=== PATIENT | female | born 1935 | race Caucasian/White ===

== ENCOUNTER → 2017-10-24 10:28 | Outpatient (CLI) | payer MEDICARE, SELFPAY ==
[2017-10-24 11:31] LABS: Absolute Lymphocyte Count 1.89 X10^3/ul (0.83-4.51); Absolute Neutrophil Count 5.5 X10^3/uL (2.0-7.7); Basophil# 0.02 X10^3/uL; Basophil% 0.2 % (0-1); Eosinophil# 0.09 X10^3/uL; Eosinophils% 1.1 % (0-5); Hematocrit 39.6 % (37-47); Hemoglobin 12.8 g/dl (12.0-15.0); Lymphocyte # 1.89 X10^3/ul (4.0); Lymphocyte % 23.3 % (19-41); Mean Corp Hgb Conc 32.3 g/gl (32-36); Mean Platelet Vol. 10.6 fl (6.2-12.0); Monocyte# 0.56 X10^3/uL; Monocyte% 6.9 % (0-10); Neutrophil % 67.9 % (47-70); Platelet Count 273 K/mm3 (150-450); RBC Distribution Width CV 13.4 % (11.6-14.6); Red Blood Count 4.26 M/mm3 (4.2-5.4); White Blood Count 8.1 K/mm3 (4.4-11.0)
[2017-10-24 11:32] LABS: POSITIVE COUNT NO; POSITIVE DIFFERENTIAL NO; POSITIVE MORPHOLOGY NO
[2017-10-24 11:44] LABS: Vitamin D,25 Hydroxy 21.5 ng/mL (29.95-100.01)
[2017-10-24 11:46] LABS: ALB/GLOB Ratio 0.8 RATIO (0.9-2.4); AST(SGOT) 13 U/L (15-37); Alanine Aminotransfer ALT/SGPT 24 U/L (13-56); Albumin, Serum 3.5 g/dL (3.2-5.0); Alkaline Phosphatase 96 U/L (45-117); Anion Gap 9 (5-15); BUN 28 mg/dL (7-18); BUN/Creat Ratio 25.9 RATIO (10-20); Calcium,Total 8.7 mg/dL (8.5-10.1); Chloride 106 mmol/L (98-107); Cholesterol 236 mg/dL (200); Creatinine, Serum 1.08 mg/dL (0.55-1.02); EST Glomerular Filtration Rate 51 mL/min (>60); Est Glom Filt Rate - Afr Amer 62 mL/min (>60); Globulin 4.3 g/dL (2.2-4.2); Glucose 107 mg/dL (74-106); High Density Lipoprotein 35 mg/dL; Potassium 4.3 mmol/L (3.5-5.1); Protein, Total 7.8 g/dL (6.4-8.2); Sodium Level 141 mmol/L (136-145); Thyroid Stim Hormone (TSH) 5.83 uIU/mL (0.358-3.74); Triglycerides 175 mg/dL; Very Low Density Lipoprotein 35 mg/dL (5-40)
== END ==
PROVIDERS: Visit Provider Family Medicine Geriatric Medicine
DX: E55.9 Vitamin D deficiency, unspecified (principal); E78.4 Other hyperlipidemia; I10 Essential (primary) hypertension
CPT/HCPCS: 36415; 80053; 80061; 82306; 84443; 85025

== ENCOUNTER → 2017-11-19 09:10 | Outpatient (CLI) | payer MEDICARE, SELFPAY ==
--- NOTE | 2017-11-19 09:13 | BI_ITS ---
MAMMOGRAPHY - BILATERAL SCREENING 3-D NATE SYNTHESIS REASON FOR EXAM: Female, 82 years old. Bilateral Screening 3-D tomosynthesis PERTINENT HISTORY: Sister with breast cancer.. TECHNIQUE: 2-D mammograms and 3-D Nate synthesis of the breast (s) were performed. CAD was performed. COMPARISON: None. FINDINGS: The breast composition is composed of scattered fibroglandular density. Scattered benign calcifications are seen. No dense spiculated masses or suspicious microcalcifications are identified. No architectural distortion is identified. There is no skin thickening or retraction. Stable vascular, and punctate calcifications. There has been no significant change since the prior study. BI/SCREENING MAMM (CAD), BILAT IMPRESSION: No mammographic signs of malignancy. Routine yearly mammograms recommended. ASSESSMENT CATEGORY: BIRADS Category 2: Benign. A letter regarding these results will be sent to the patient by the facility within 30 days. FOLLOW UP RECOMMENDATION: Yearly follow up mammogram recommended. (A) Approximately 10% of breast cancers are not detected by mammography. A normal mammogram should not delay biopsy of a clinically suspicious abnormality. Electronically Signed: Cornell Bernardo MD at 11:39 EDT , Service support ,
== END ==
PROVIDERS: Family Provider Family Medicine Geriatric Medicine; PCP Family Medicine Geriatric Medicine; Visit Provider Family Medicine Geriatric Medicine
DX: Z12.31 Encounter for screening mammogram for malignant neoplasm of breast (principal)
CPT/HCPCS: 77063; 77067

== ENCOUNTER → 2017-12-27 10:12 | Outpatient (CLI) | payer MEDICARE, SELFPAY ==
--- NOTE | 2017-12-27 10:12 | DT_ITS ---
This patient was seen during an EMR downtime December 24, 2017 - December 31, 2017. This patient may have a combination of paper and electronic documentation or all paper documentation. All documentation is viewable within the e-chart portion of [facility] for each patient visit.
--- NOTE | 2017-12-27 10:15 | RAD_ITS ---
STUDY: X-RAY - LEFT KNEE REASON FOR EXAM: Female, 82 years old. Left knee pain TECHNIQUE: 4 view(s) of the knee. COMPARISON: None. FINDINGS: Normal visualized distal femur. Normal visualized proximal tibia and fibula. Normal proximal tibiofibular articulation. Normal medial femorotibial compartment. Normal lateral femorotibial compartment. Normal patellofemoral articulation. The soft tissue structures are unremarkable. RAD/Knee 4 or More Views IMPRESSION: Normal x-ray examination of the knee. Electronically Signed: Bin Pineda MD at 18:25 EDT , Service support ,
== END ==
PROVIDERS: Family Provider Family Medicine Geriatric Medicine; PCP Family Medicine Geriatric Medicine; Visit Provider Family Medicine Geriatric Medicine
DX: M25.562 Pain in left knee (principal)
CPT/HCPCS: 73564

== ENCOUNTER 2018-01-05 21:41 | Emergency (ER) | payer MEDICARE, SELFPAY ==
[2018-01-05 21:43] VITALS: BP 180/75; PULSE 89; RESP 18; TEMP 36.7; O2SAT 96; BMI 33.5
--- NOTE | 2018-01-05 22:45 | ED.VISSUMM ---
- ER Visit Summary Date of Service: 01/05/18 Chief Complaint: Atraumatic left medial knee pain History of Present Illness: The patient is a 82 F complaining of atraumatic left medial knee pain for last 2 weeks. Previously did not has knee problems. She has never had knee surgery. She has not had any significant history of arthritis. She states 2 weeks ago she stepped up in her jeep and was sitting sat somewhat cramped and developed knee pain. She was seen in follow-up by her primary care physician Dr. Napier about a week ago he did a left knee joint injection using steroids. She said it gave her a little relief for a day or so but then became uncomfortable again. She denies any recent falls or trauma. She has been using a cane to ambulate. She denies any redness or fever. She has never had any type of knee surgery. Physical Examination: Older female no acute distress vital signs stable afebrile. HEENT exam unremarkable neck nontender lungs clear to auscultation bilaterally. Heart regular rate and rhythm no murmur. Abdomen soft nontender. She is moving all 4 extremities. They are neurovascularly intact. The left hip, ankle and foot are nontender neurovascular intact with normal range of motion. Left knee has medial knee joint tenderness. There is no ecchymosis or bruising no signs of trauma. No redness or warmth. No significant effusion. She is able to flex and extend with some discomfort medially. The ACL and PCL appear to be intact. The LCL is intact. The MCL has some pain with stressing but appears to have a good endpoint does not appear to be torn. There is also medial joint tenderness. There is absolutely no signs of a joint infection. Test Results: She had x-rays done within the last 2 weeks. I reviewed and showed some joint space narrowing but the bones appeared to look good. There is some degree of arthritis. I went over the x-rays with the patient explained to her that she may have a meniscal tear or wear and tear of the cartilage that is not seen on the x-ray. Emergency Department Course and Treatment: Patient referred to Dr. Finn Arechiga communications project manager for orthopedics for follow-up. There is nothing further to do an ER tonight. She did not want pain meds she will use Aleve at home. Ice. Treatment Plan: Left medial knee pain suspect secondary to arthritis. Disposition: Discharged Impression: Left medial knee pain secondary to arthritis rule out intra-articular pathology This note was generated with [employer] dictation software. It may contain incorrect words, spelling, and punctuation that were not noted in review of the chart prior to signing ED Disposition - Plan for ED Patient: Chief Complaint: Lower Extremity Injury Referrals: Beck Napier Chi, MD [Primary Care Provider] -
--- NOTE | 2018-01-05 22:50 | ED.DCSUM_ITS ---
- ER Visit Summary Date of Service: 01/05/18 Chief Complaint: Atraumatic left medial knee pain History of Present Illness: The patient is a 82 F complaining of atraumatic left medial knee pain for last 2 weeks. Previously did not has knee problems. She has never had knee surgery. She has not had any significant history of arthritis. She states 2 weeks ago she stepped up in her jeep and was sitting sat somewhat cramped and developed knee pain. She was seen in follow-up by her primary care physician Dr. Napier about a week ago he did a left knee joint injection using steroids. She said it gave her a little relief for a day or so but then became uncomfortable again. She denies any recent falls or trauma. She has been using a cane to ambulate. She denies any redness or fever. She has never had any type of knee surgery. Physical Examination: Older female no acute distress vital signs stable afebrile. HEENT exam unremarkable neck nontender lungs clear to auscultation bilaterally. Heart regular rate and rhythm no murmur. Abdomen soft nontender. She is moving all 4 extremities. They are neurovascularly intact. The left hip, ankle and foot are nontender neurovascular intact with normal range of motion. Left knee has medial knee joint tenderness. There is no ecchymosis or bruising no signs of trauma. No redness or warmth. No significant effusion. She is able to flex and extend with some discomfort medially. The ACL and PCL appear to be intact. The LCL is intact. The MCL has some pain with stressing but appears to have a good endpoint does not appear to be torn. There is also medial joint tenderness. There is absolutely no signs of a joint infection. Test Results: She had x-rays done within the last 2 weeks. I reviewed and showed some joint space narrowing but the bones appeared to look good. There is some degree of arthritis. I went over the x-rays with the patient explained to her that she may have a meniscal tear or wear and tear of the cartilage that is not seen on the x-ray. Emergency Department Course and Treatment: Patient referred to Dr. Finn Arechiga internal consultant for orthopedics for follow-up. There is nothing further to do an ER tonight. She did not want pain meds she will use Aleve at home. Ice. Treatment Plan: Left medial knee pain suspect secondary to arthritis. Disposition: Discharged Impression: Left medial knee pain secondary to arthritis rule out intra- articular pathology This note was generated with [employer] dictation software. It may contain incorrect words, spelling, and punctuation that were not noted in review of the chart prior to signing ED Disposition - Plan for ED Patient: Chief Complaint: Lower Extremity Injury Referrals: Beck Napier Chi, MD [Primary Care Provider] -
--- NOTE | 2018-01-05 22:50 | ED.DEP ---
ED Disposition - Plan for ED Patient: Disposition: Home or Assisted Living Chief Complaint: Lower Extremity Injury Instructions: ED Knee Pain [facility] Referrals: Beck Napier Chi, MD [Primary Care Provider] - Additional Instructions: Ice to the left knee. Aleve for pain and inflammation. Call and follow-up with Dr. Finn Arechiga or any orthopedic surgeon of your choice.
[2018-01-05 23:06] VITALS: RESP 16
--- NOTE | 2018-01-05 23:07 | ED.RN ---
REVIEWED D/C INSTRUCTIONS, FOLLOW UP CARE, AND S/S THAT WOULD WARRANT A RETURN TO THE ED WITH PT. PT VERBALIZED AN UNDERSTANDING AND DENIES FURTHER QUESTIONS FOR THIS RN. PT SKIN P/W/D, RESP EVEN AND UNLABORED, PT A&O X 3, NO DISTRESS NOTED. PT ASSISTED OUT OF ED IN WHEELCHAIR, NO DISTRESS NOTED.
== END 2018-01-05 23:08 | disposition home or self-care (01) ==
PROVIDERS: Emergency Provider Emergency Medicine; Family Provider Family Medicine Geriatric Medicine; PCP Family Medicine Geriatric Medicine
DX: M25.562 Pain in left knee (principal); M17.12 Unilateral primary osteoarthritis, left knee; I10 Essential (primary) hypertension; Z90.49 Acquired absence of other specified parts of digestive tract; Z79.899 Other long term (current) drug therapy
CPT/HCPCS: 99284

== ENCOUNTER → 2018-01-09 16:53 | Outpatient (CLI) | payer MEDICARE, SELFPAY ==
--- NOTE | 2018-01-09 17:01 | MRI_ITS ---
STUDY: MRI LEFT KNEE REASON FOR EXAM: Female, 82 years old. Left knee pain. Twisting injury 2 weeks ago. TECHNIQUE: Standardized fat and water weighted pulse sequences were obtained in all 3 orthogonal planes. COMPARISON: X-ray December 27, 2017 FINDINGS: There is loss of substance with tearing at the junction of the posterior horn and body of the medial meniscus, series 3 images 33/42 and 34/42. There is diffuse, greater than 50% thickness articular cartilage loss of the medial femorotibial compartment. Normal medial femoral condyle and tibial plateau. There is a partial sprain of the MCL with interstitial and periligamentous edema, series 6 images 15/30 through 17/. Normal distal semimembranosus, gracilis and semitendinosus tendons. Normal lateral meniscus. There is diffuse, less than 50% thickness articular cartilage loss of the lateral femorotibial compartment. Normal lateral femoral condyle and tibial plateau. Normal proximal tibiofibular articulation. Normal lateral collateral (fibular) ligament. Normal popliteus tendon. Normal biceps femoris tendon. Normal anterior cruciate ligament (ACL). Normal posterior cruciate ligament (PCL). Normal congruent patellofemoral articulation. Normal hyaline cartilage of the patellofemoral compartment. Normal medial and lateral patellar retinaculum. Normal quadriceps tendon. Normal patellar tendon. Normal Hoffa's fat pad. There is a moderate volume joint effusion. The soft tissues are unremarkable. The otherwise visualized osseous structures are unremarkable. MRI/Lower Ext Joint Only (Routine) IMPRESSION: Medial meniscus tear Medial collateral ligament sprain. Joint effusion. Electronically Signed: Joaquim Coe MD at 18:55 EDT , Service support ,
== END ==
PROVIDERS: Family Provider Family Medicine Geriatric Medicine; PCP Family Medicine Geriatric Medicine; Visit Provider Family Medicine Geriatric Medicine
DX: S76.112A Strain of left quadriceps muscle, fascia and tendon, initial encounter (principal); M25.562 Pain in left knee
CPT/HCPCS: 73721

== ENCOUNTER → 2018-01-22 12:28 | Outpatient (CLI) | payer MEDICARE, SELFPAY ==
--- NOTE | 2018-01-22 12:31 | RAD_ITS ---
STUDY: X-RAY - LUMBOSACRAL SPINE REASON FOR EXAM: Female, 82 years old. Low back and left leg pain. TECHNIQUE: 8 view(s) of the lumbosacral spine were obtained, including lateral weightbearing flexion-extension views. COMPARISON: None FINDINGS: Normal lumbar lordosis. There is no substantial scoliosis. There is a grade 1 spondylolisthesis of L3 on L4 and borderline retrolisthesis of L4 on L5, neither of which change with flexion and extension. Range of motion on flexion and extension is limited, however. There is rightward subluxation of L3 on L4, and a 16 degree levoscoliosis at L4-5. There is multilevel endplate spondylosis of the lumbar vertebrae. There is multi-level degenerative disc disease with multi-level disc space narrowing. There is depression of the superior L3 and L5 vertebral endplates with 25-30% loss of height at each level. There are degenerative arthroses of the lumbar facet articulations, with narrowing most prominent on the right at L4-5 and on the left at L5-S1. There is mild degenerative arthrosis of the bilateral sacroiliac joints with articular joint space narrowing and sclerosis. Normal visualized sacrum. There is atherosclerotic calcification of the abdominal aorta without a demonstrated aneurysm. Surgical clips of prior cholecystectomy project in the right upper quadrant of the abdomen. RAD/L/S Spine Comp/w Bending Views IMPRESSION: 1. 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 2. Degenerative changes of the spine, as detailed above. Mild vertebral displacements of the mid to lower spine appear fixed on flexion and extension, although range of motion is very limited. 3. Atherosclerotic calcific plaquing of the abdominal aorta. Electronically Signed: Cornell Choudhary MD at 19:46 EDT , Service support ,
== END ==
PROVIDERS: Family Provider Family Medicine Geriatric Medicine; PCP Family Medicine Geriatric Medicine; Visit Provider Family Medicine Geriatric Medicine
DX: M54.5 Low back pain (principal)
CPT/HCPCS: 72114

== ENCOUNTER → 2018-01-30 11:45 | Outpatient (CLI) | payer MEDICARE, SELFPAY ==
[2018-01-30 12:46] LABS: Absolute Lymphocyte Count 0.97 X10^3/ul (0.83-4.51); Absolute Neutrophil Count 13.4 X10^3/uL (2.0-7.7); Basophil# 0.01 X10^3/uL; Basophil% 0.1 % (0-1); Eosinophil# 0.01 X10^3/uL; Eosinophils% 0.1 % (0-5); Hematocrit 40.5 % (37-47); Hemoglobin 13.2 g/dl (12.0-15.0); Lymphocyte # 0.97 X10^3/ul (4.0); Lymphocyte % 6.3 % (19-41); Mean Corp Hgb Conc 32.6 g/gl (32-36); Mean Corpuscular Hgb 30.5 pg (27.0-32.0); Mean Corpuscular Volume 93.5 fL (81-99); Mean Platelet Vol. 9.8 fl (6.2-12.0); Monocyte# 0.84 X10^3/uL; Monocyte% 5.5 % (0-10); Neutrophil # 13.42 X10^3/uL (2.7-7.7); Platelet Count 238 K/mm3 (150-450); RBC Distribution Width CV 14.2 % (11.6-14.6); RBC Distribution Width SD 48.5 fl (35.1-43.9); Red Blood Count 4.33 M/mm3 (4.2-5.4); White Blood Count 15.4 K/mm3 (4.4-11.0)
[2018-01-30 12:51] LABS: POSITIVE COUNT NO; POSITIVE DIFFERENTIAL NO; POSITIVE MORPHOLOGY NO
[2018-01-30 13:07] LABS: ALB/GLOB Ratio 0.9 RATIO (0.9-2.4); AST(SGOT) 17 U/L (15-37); Alanine Aminotransfer ALT/SGPT 35 U/L (13-56); Albumin, Serum 3.1 g/dL (3.2-5.0); Alkaline Phosphatase 121 U/L (45-117); Anion Gap 9 (5-15); BUN 41 mg/dL (7-18); BUN/Creat Ratio 37.3 RATIO (10-20); Calcium,Total 8.5 mg/dL (8.5-10.1); Chloride 102 mmol/L (98-107); Cholesterol 195 mg/dL (200); EST Glomerular Filtration Rate 50 mL/min (>60); Est Glom Filt Rate - Afr Amer 61 mL/min (>60); Globulin 3.5 g/dL (2.2-4.2); Glucose 98 mg/dL (74-106); High Density Lipoprotein 50 mg/dL; Protein, Total 6.6 g/dL (6.4-8.2); Sodium Level 137 mmol/L (136-145); Thyroid Stim Hormone (TSH) 2.77 uIU/mL (0.358-3.74); Triglycerides 160 mg/dL; Very Low Density Lipoprotein 32 mg/dL (5-40)
== END ==
PROVIDERS: Family Provider Family Medicine Geriatric Medicine; PCP Family Medicine Geriatric Medicine; Visit Provider Family Medicine Geriatric Medicine
DX: E55.9 Vitamin D deficiency, unspecified (principal); E78.4 Other hyperlipidemia; I10 Essential (primary) hypertension
CPT/HCPCS: 36415; 80053; 80061; 82306; 84443; 85025

== ENCOUNTER → 2018-02-22 11:15 | Outpatient (CLI) | payer MEDICARE, SELFPAY ==
--- NOTE | 2018-02-22 11:28 | EKG12_ITS ---
Test Reason : PRE OP Blood Pressure : / mmHG Vent. Rate : 090 BPM Atrial Rate : 090 BPM P-R Int : 136 ms QRS Dur : 122 ms QT Int : 356 ms P-R-T Axes : 052 012 026 degrees QTc Int : 435 ms Normal sinus rhythm Possible Left atrial enlargement Right bundle branch block Abnormal ECG Confirmed by AGATHA SALEH, GERI ([id number]), photography editor JENI JERONIMO ([id number] on 02/25/2018 1:40:10 PM Referred By: Lalo Hall Confirmed By:GERI SNIDER MD
[2018-02-22 12:44] LABS: Hematocrit 36.4 % (37-47); Hemoglobin 11.6 g/dl (12.0-15.0); Mean Corp Hgb Conc 31.9 g/gl (32-36); Mean Corpuscular Hgb 29.9 pg (27.0-32.0); Mean Corpuscular Volume 93.8 fL (81-99); Mean Platelet Vol. 9.5 fl (6.2-12.0); Platelet Count 268 K/mm3 (150-450); RBC Distribution Width CV 14.3 % (11.6-14.6); RBC Distribution Width SD 48.6 fl (35.1-43.9); Red Blood Count 3.88 M/mm3 (4.2-5.4); White Blood Count 9.2 K/mm3 (4.4-11.0)
[2018-02-22 12:53] LABS: Scan Indicated on CBC? Y/N NO
[2018-02-22 13:36] LABS: Anion Gap 9 (5-15); BUN 24 mg/dL (7-18); BUN/Creat Ratio 24.6 RATIO (10-20); Chloride 105 mmol/L (98-107); Creatinine, Serum 0.97 mg/dL (0.55-1.02); EST Glomerular Filtration Rate 58 mL/min (>60); Est Glom Filt Rate - Afr Amer 70 mL/min (>60); Glucose 72 mg/dL (74-106); Potassium 4.7 mmol/L (3.5-5.1); Sodium Level 140 mmol/L (136-145)
== END ==
PROVIDERS: Family Provider Family Medicine Geriatric Medicine; PCP Family Medicine Geriatric Medicine; Visit Provider Physician Assistant Surgical
DX: Z01.818 Encounter for other preprocedural examination (principal); Z01.810 Encounter for preprocedural cardiovascular examination
CPT/HCPCS: 36415; 80048; 85027; 93005

== ENCOUNTER → 2018-04-24 13:12 | Outpatient (CLI) | payer MEDICARE, SELFPAY ==
[2018-04-24 17:26] LABS: Vitamin D,25 Hydroxy 30.3 ng/mL (29.95-100.01)
[2018-04-24 17:36] LABS: Absolute Lymphocyte Count 1.83 X10^3/ul (0.83-4.51); Absolute Neutrophil Count 6.7 X10^3/uL (2.0-7.7); Basophil# 0.02 X10^3/uL; Basophil% 0.2 % (0-1); Eosinophil# 0.08 X10^3/uL; Eosinophils% 0.8 % (0-5); Hematocrit 36.3 % (37-47); Hemoglobin 11.6 g/dl (12.0-15.0); Lymphocyte # 1.83 X10^3/ul (4.0); Lymphocyte % 19.3 % (19-41); Mean Corpuscular Hgb 31.2 pg (27.0-32.0); Mean Corpuscular Volume 97.6 fL (81-99); Mean Platelet Vol. 9.9 fl (6.2-12.0); Monocyte# 0.85 X10^3/uL; Neutrophil # 6.67 X10^3/uL (2.7-7.7); Neutrophil % 70.3 % (47-70); Platelet Count 261 K/mm3 (150-450); RBC Distribution Width CV 14.2 % (11.6-14.6); RBC Distribution Width SD 50.8 fl (35.1-43.9); Red Blood Count 3.72 M/mm3 (4.2-5.4); White Blood Count 9.5 K/mm3 (4.4-11.0)
[2018-04-24 17:37] LABS: Differential Indicated SCAN CRITERIA MET; POSITIVE COUNT NO; POSITIVE DIFFERENTIAL NO; POSITIVE MORPHOLOGY YES
[2018-04-24 17:39] LABS: ALB/GLOB Ratio 0.9 RATIO (0.9-2.4); AST(SGOT) 12 U/L (15-37); Alanine Aminotransfer ALT/SGPT 22 U/L (13-56); Albumin, Serum 3.2 g/dL (3.2-5.0); Alkaline Phosphatase 79 U/L (45-117); Anion Gap 8 (5-15); BUN 21 mg/dL (7-18); BUN/Creat Ratio 24.6 RATIO (10-20); Calcium,Total 8.6 mg/dL (8.5-10.1); Chloride 104 mmol/L (98-107); Cholesterol 218 mg/dL (200); Creatinine, Serum 0.85 mg/dL (0.55-1.02); EST Glomerular Filtration Rate 67 mL/min (>60); Est Glom Filt Rate - Afr Amer 82 mL/min (>60); Globulin 3.6 g/dL (2.2-4.2); Glucose 85 mg/dL (74-106); High Density Lipoprotein 44 mg/dL; Potassium 4.4 mmol/L (3.5-5.1); Protein, Total 6.8 g/dL (6.4-8.2); Sodium Level 138 mmol/L (136-145); Thyroid Stim Hormone (TSH) 2.91 uIU/mL (0.358-3.74); Triglycerides 115 mg/dL; Very Low Density Lipoprotein 23 mg/dL (5-40)
[2018-04-24 18:23] LABS: Differential Comment SCANNED
== END ==
PROVIDERS: Family Provider Family Medicine Geriatric Medicine; PCP Family Medicine Geriatric Medicine; Visit Provider Family Medicine Geriatric Medicine
DX: E55.9 Vitamin D deficiency, unspecified (principal); E78.49 Other hyperlipidemia; I10 Essential (primary) hypertension
CPT/HCPCS: 36415; 80053; 80061; 82306; 84443; 85025

== ENCOUNTER → 2018-06-26 10:38 | Outpatient (CLI) | payer MEDICARE, SELFPAY ==
--- NOTE | 2018-06-26 10:42 | BD_ITS ---
STUDY: DUAL ENERGY X-RAY ABSORPTIOMETRY / DXA REASON FOR EXAM: Female, 83 years old. The patient is postmenopausal. Loss of height. TECHNIQUE: Bone Mineral Density (BMD) measurements of lumbar spine and bilateral hips were obtained. COMPARISON: None. FINDINGS: Lumbar Spine (L1-L4): g/cm2 (1.032) / T-score (-1.1) / Z-score (0.8) Findings are suggestive of osteopenia with a low fracture risk. Left Femur Total: g/cm2 (0.785) / T-score (-1.8) / Z-score (0.5) Left Femoral Neck: g/cm2 (0.743) / T-score (-2.1) / Z-score (0.2) Right Femur Total: g/cm2 (0.808) / T-score (-1.6) / Z-score (0.6) Right Femoral Neck: g/cm2 (0.809) / T-score (-1.7) / Z-score (0.7) BD/Dexa Bone Density Study IMPRESSION: The patient is considered osteopenic as outlined below according to World Major Organization (WHO) criteria with a moderate fracture risk. Reference Information: The T-score is the number of standard deviations above or below the standard which is normal for young adults at their peak bone mineral density. The World Health Organization (WHO) interprets the T-scores as follows: Above -1 Normal bone density Between -1 and -2.5 Osteopenia Equal to / or below -2.5 Osteoporosis As a practical clinical guideline, osteopenia may be graded as follows: Mild -1 through -1.5 Moderate -1.6 through -2.0 Severe -2.1 through -2.4 The Z-score is the number of standard deviations above or below age-matched controls. A Z-score of less than -1.5 would be considered abnormal. References: 1. NIH Osteoporosis and Related Bone Diseases http://www.osteo.org 2. International Society for Clinical Densitometry http://www.iscd.org 3. National Osteoporosis Foundation http://www.nof.org Electronically Signed: Edmundo Diallo MD at 15:52 EST Tel [phone], Service support ,
== END ==
PROVIDERS: Family Provider Family Medicine Geriatric Medicine; PCP Family Medicine Geriatric Medicine; Visit Provider Family Medicine Geriatric Medicine
DX: Z78.0 Asymptomatic menopausal state (principal)
CPT/HCPCS: 77080

== ENCOUNTER → 2018-08-07 12:58 | Outpatient (CLI) | payer MEDICARE, SELFPAY ==
[2018-08-07 13:45] LABS: Amphetamine Urine VISTA NEGATIVE (<1000 ng/mL); Barbiturate Urine VISTA NEGATIVE (< 200 ng/mL); Benzodiazepine Urine VISTA NEGATIVE (< 200 ng/mL); Cocaine Urine VISTA NEGATIVE (< 300 ng/mL); Ecstacy Urine VISTA NEGATIVE (< 500 ng/mL); Methadone Urine VISTA NEGATIVE (< 300 ng/mL); PCP Urine VISTA NEGATIVE (< 25 ng/mL); THC Urine VISTA NEGATIVE (< 50 ng/mL); Vista UDS pH Range 5
--- OUTSIDE RECORDS SUMMARY | 2018-10-12 09:33 | XMS RPT_ITS ---
:1935 Author Organization OHIP Support Name Relationship Address Phone KEVIN LANDRY Unavailable [address] + [place] [address] R Unavailable Unavailable Unavailable KRAMMER, KEVIN Unavailable [address] + [place] [address] R Unavailable Unavailable Unavailable ROSALINDAMMER, KEVIN Unavailable [address] + [place] [address] R Unavailable Unavailable Unavailable KRAMMER, KEVIN Unavailable [address] + [place] [address] R Unavailable Unavailable Unavailable ROSALINDAMMER, KEVIN Unavailable [address] + [place] [address] R Unavailable Unavailable Unavailable ROSALINDAMMER, KEVIN Unavailable [address] + [place] [address] R Unavailable Unavailable Unavailable ROSALINDAMMER, KEVIN Unavailable [address] + [place] [address] R Unavailable Unavailable Unavailable KRAMMER, KEVIN Unavailable [address] + [place] [address] R Unavailable Unavailable Unavailable ROSALINDAMMER, KEVIN Unavailable [address] + [place] [address] R Unavailable Unavailable Unavailable KRAMMER, ANA Unavailable [address] + [place] [address] R Unavailable Unavailable Unavailable ROSALINDAMMER, KEVIN Unavailable [address] + [place] [address] R Unavailable Unavailable Unavailable KRAMMER, ANA Unavailable [address] + [place] [address] R Unavailable Unavailable Unavailable R Unavailable Unavailable Unavailable Care Team Providers Name Role Phone Basali, Ayman Attending Unavailable Basali, Ayman Referring Unavailable Karthikeyan, Beck Chi Primary Care Unavailable Karthikeyan, Beck Chi Attending Unavailable Karthikeyan, Beck Chi Attending Unavailable Karthikeyan, Beck Chi Referring Unavailable Karthikeyan, Beck Chi Primary Care Unavailable Karthikeyan, Beck Chi Attending Unavailable Karthikeyan, Beck Chi Primary Care Unavailable Karthikeyan, Beck Chi Primary Care Unavailable [place] Gomez Attending Unavailable Karthikeyan, Beck Chi Attending Unavailable Karthikeyan, Beck Chi Referring Unavailable Karthikeyan, Beck Chi Primary Care Unavailable Karthikeyan, Beck Chi Attending Unavailable Karthikeyan, Beck Chi Referring Unavailable Karthikeyan, Beck Chi Primary Care Unavailable Margaux Hernandez D.C. Attending Unavailable Karthikeyan, Beck Chi Referring Unavailable Karthikeyan, Beck Chi Attending Unavailable Karthikeyan, Beck Chi Primary Care Unavailable Lalo Hall PA-C Attending Unavailable EshenLalo wang PA-C Referring Unavailable Karthikeyan, Bekc Chi Primary Care Unavailable Finn Arechiga Unavailable Moodarjun, Sathya Attending Unavailable EshenauLalo fitzgerald PA-C Referring Unavailable Karthikeyan, Beck Chi Attending Unavailable Karthikeyan, Beck Chi Primary Care Unavailable Karthikeyan, Beck Chi Attending Unavailable Karthikeyan, Beck Chi Primary Care Unavailable PROBLEMS PROBLEMS DATE TYPE CONDITION / CODE ATTENDING STATUS SOURCE 08/07/2018 Unknown 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, 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, Community uncomplicated / Hospital F11.20(ICD-10) Repository 06/26/2018 Unknown N95.9 - Unspecified Karthikeyan, Beck Chi Active [facility] menopausal and Community perimenopausal Hospital disorder / Repository N95.9(ICD-10) 04/24/2018 Unknown E55.9 - Vitamin D Karthikeyan, Beck Chi Active [place] deficiency, Community unspecified / Hospital E55.9(ICD-10) Repository 04/24/2018 Unknown I10 - Essential Karthikeyan, Beck Chi Active [facility] (primary) hypertension Community / I10(ICD-10) Hospital Repository 04/08/2018 Unknown I45.10 - Unspecified [place], Active [place] right bundle-branch Sathya [facility] block / I45.10(ICD-10) Hospital Repository 04/08/2018 Unknown R94.31 - Abnormal [place], Active [place] electrocardiogram [facility] [ECG] [EKG] / Hospital R94.31(ICD-10) Repository 01/22/2018 Unknown M54.5 - Low back pain Karthikeyan, Beck Chi Active [place] / M54.5(ICD-10) [facility] Repository 01/16/2018 Unknown M25.562 - Pain in left Karthikeyan, Beck Chi Active [place] knee / M25.562(ICD-10) [facility] Repository PROCEDURES PROCEDURES No Procedure Records FoundRESULTS RESULTS URINE DRUG SCREEN Collected: 08/07/2018 Status: F Source: [place] ([place]) 1:04 PM [facility] [place] Order Comment: List of Drugs Taken or Suspected? UNK TYPE CODE TESTS RESULT OUT OF RANGE REFERENCE UNITS LAB L505.0075 TO BE Normal CONFIRMED Result Comment: CONFIRMATORY TESTING FOR ALL POSITIVE URINE DRUG SCREEN RESULTS WILL ONLY BE SENT OUT UPON PHYSICIAN ORDER. VISTA Urine Drug Screen methods provide only preliminary analytical test results. A more specific alternate chemical method must be used in order to obtain a confirmed analytical result. Gas chromatography/mass spectrometery (GC/MS) is the preferred confirmatory method. Clinical consideration and professional judgement should be applied to any drug of abuse test result, particularly when preliminary positive results are used. URINE TCA TESTING MUST BE ORDERED SEPARATELY. USE TEST MNEMONIC: [facility] LAB L505.5005 VISTA UDS PH 5 Normal LAB L505.5015 <1000 ng/mL AMPHETAMINES Normal NEGATIVE LAB L505.5025 < 200 ng/mL BARBITIURATES Normal NEGATIVE LAB L505.5035 < 200 ng/mL BENZODIAZIPINE Normal NEGATIVE LAB L505.5045 < 300 ng/mL COCAINE Normal NEGATIVE LAB L505.5055 < 500 ng/mL ECSTACY Normal NEGATIVE LAB L505.5065 < 300 ng/mL METHADONE Normal NEGATIVE LAB L505.5075 < 300 ng/mL OPIATES Normal NEGATIVE LAB L505.5085 < 25 ng/mL PCP Normal NEGATIVE LAB L505.5095 < 50 ng/mL THC Normal NEGATIVE Performed By: #### L505.5000 #### [facility] [address] [place], [address] MISCELLANEOUS LAB Collected: 08/07/2018 Status: F Source: [place] PROCEDURE 1:04 PM [facility] [place] Order Comment: Test(s) Ordered: URINE TOXICOLOGY [id number] RUN LOWEST TEST TYPE CODE TESTS RESULT OUT OF RANGE REFERENCE UNITS LAB L801.1541 Normal [facility] LAB TEST Result Comment: [id number] 6+OXYCODONE-BUND (ng/mL) DRUG RESULT SCREEN CUTOFF ____ Amphetamines,Urine Negative ng/mL 1000 Amphetamine test includes Amphetamine and Methamphetamine. Barbiturates Negative ng/mL 200 Benzodiazepines Negative ng/mL 200 Cannabinoid Negative ng/mL 20 Cocaine (Metab) Negative ng/mL 300 Opiates Negative ng/mL 300 Opiates test includes Codeine, Morphine, Hydromorphone, Hydrocodone. Oxycodone/Oxymorphone,Urine Negative ng/mL 300 Test includes Oxydodone and Oxymorphone. TESTING PERFORMED AT [facility]. ORIGINAL REPORT ON FILE IN LAB CONTAINS ADDITIONAL TEST SITE INFORMATION. Performed By: #### L801.1541 #### [facility] [address] [place], [address] DEXA BONE DENSITY Observed: 06/26/2018 Status: F Source: [place] STUDY 10:40 AM [facility] [place] [facility] Imaging Services [address] [place], [place] [address] [address] Dexa Bone Density Study MR#: [id number] Acct: [id number] Name: RICHARD [place] Rep #: [id number] : 1935 F 83 From: Edmundo Diallo MD PCP: Karthikeyan SALEH,Beck Flores Status: REG CLI Study: Dexa Bone Density Study Date of Exam: 06/26/18 Exam# [id number] Ordering Dr: Beck Napier MD STUDY: DUAL ENERGY X-RAY ABSORPTIOMETRY / DXA REASON FOR EXAM: Female, 83 years old. The patient is postmenopausal. Loss of height. TECHNIQUE: Bone Mineral Density (BMD) measurements of lumbar spine and bilateral hips were obtained. COMPARISON: None. FINDINGS: Lumbar Spine (L1-L4): g/cm2 (1.032) / T-score (-1.1) / Z-score (0.8) Findings are suggestive of osteopenia with a low fracture risk. Left Femur Total: g/cm2 (0.785) / T-score (-1.8) / Z- score (0.5) Left Femoral Neck: g/cm2 (0.743) / T-score (-2.1) / Z- score (0.2) Right Femur Total: g/cm2 (0.808) / T-score (-1.6) / Z- score (0.6) Right Femoral Neck: g/cm2 (0.809) / T-score (-1.7) / Z-score (0.7) BD/Dexa Bone Density Study IMPRESSION: The patient is considered osteopenic as outlined below according to World Major Organization (WHO) criteria with a moderate fracture risk. Reference Information: The T-score is the number of standard deviations above or below the standard which is normal for young adults at their peak bone mineral density. The World Health Organization (WHO) interprets the T-scores as follows: Above -1 Normal bone density Between -1 and -2.5 Osteopenia Equal to / or below -2.5 Osteoporosis As a practical clinical guideline, osteopenia may be graded as follows: Mild -1 through -1.5 Moderate -1.6 through -2.0 Severe -2.1 through -2.4 The Z-score is the number of standard deviations above or below age-matched controls. A Z-score of less than -1.5 would be considered abnormal. References: 1. NIH Osteoporosis and Related Bone Diseases http://www.osteo.org 2. International Society for Clinical Densitometry http://www.iscd.org 3. National Osteoporosis Foundation http://www.nof.org Electronically Signed: Edmundo Diallo MD at 15:52 EST Tel [phone], Service support , CC: Beck Napier MD Animal Keeper Head: Signed VITAMIN D,25 HYDROXY Collected: 04/24/2018 Status: F Source: [place] 1:16 PM [facility] [place] TYPE CODE TESTS RESULT OUT OF RANGE REFERENCE UNITS LAB L506.1000 29.95-100.01 ng/mL Normal Vitamin D 30.3 25-OH Result Comment: Vitamin D 25(OH) Status Range Deficiency <20 ng/mL (50nmol/L) Insuffciency 20 - 30 ng/mL (50 - 75 nmol/L) Sufficiency 30 - 100 ng/mL (75 - 250 nmol/L) Toxicity >100 ng/mL (>250 nmol/L) Performed By: #### L506.1000 #### [facility] [place], [address] CBC W/DIFF, AUTOMATED Collected: 04/24/2018 Status: F Source: [place] 1:16 PM [facility] [place] TYPE CODE TESTS RESULT OUT OF RANGE REFERENCE UNITS LAB L100.1000 4.4-11.0 K/mm3 Normal WBC 9.5 LAB L100.1200 4.2-5.4 M/mm3 Low RBC 3.72 LAB L100.1300 12.0-15.0 g/dl Low HGB 11.6 LAB L100.1400 37-47 % Low HCT 36.3 LAB L100.1500 81-99 fL Normal MCV 97.6 LAB L100.1600 27.0-32.0 pg Normal MCH 31.2 LAB L100.1700 32-36 g/gl Normal MCHC 32.0 LAB L100.1810 11.6-14.6 % Normal RDW CV 14.2 LAB L100.1820 35.1-43.9 fl High RDW SD 50.8 LAB L100.1900 150-450 K/mm3 Normal PLT 261 LAB L100.2000 6.2-12.0 fl Normal MPV 9.9 LAB L100.2100 47-70 % High NEUT% 70.3 LAB L100.2200 19-41 % Normal LY% 19.3 LAB L100.2300 0-10 % Normal MONO% 9.0 LAB L100.2400 0-5 % Normal EO% 0.8 LAB L100.2500 0-1 % Normal BASO% 0.2 LAB L100.2550 0.0-0.9 % Normal IM GRAN % 0.400 Result Comment: IG% - Immature Granulocytes (promyelocytes, myelocytes and metamyelocytes) > 1% indicates that a LEFT SHIFT is Present. LAB L100.2620 2.0-7.7 X10 3/uL Normal Absolute Neut 6.7 LAB L100.2720 0.83-4.51 X10 3/ul Normal Absolute Lymph 1.83 LAB L100.4500 Normal SMEAR COMMENT SCANNED Performed By: #### L100.0100 #### [facility] [address] [place], [address] COMPREHENSIVE METABOLIC Collected: 04/24/2018 Status: F Source: [facility] 1:16 PM [facility] TYPE CODE TESTS RESULT OUT OF RANGE REFERENCE UNITS LAB L501.0100 74-106 mg/dL Normal GLU 85 Result Comment: Please note revised GLUCOSE reference range effective 2017. LAB L501.1000 7-18 mg/dL High BUN 21 LAB L501.1100 0.55-1.02 mg/dL Normal CREAT,SERUM 0.85 Result Comment: The validity of the calculated GFR AND GFRAA in patients over 70 years has not been determined. Clinical correlation is essential. LAB L501.1110 >60 mL/min Normal EST GFR 67 Result Comment: Non- GFR Calc LAB L501.1115 >60 mL/min Normal EST GFR - AA 82 Result Comment: GFR Calc LAB L501.1300 10-20 RATIO High BUN/CRE 24.6 LAB L501.1500 6.4-8.2 g/dL T Normal PROT 6.8 LAB L501.1800 3.2-5.0 g/dL Normal ALB 3.2 LAB L501.1950 2.2-4.2 g/dL Normal GLOB 3.6 LAB L501.2000 0.9-2.4 RATIO Normal A/G 0.9 LAB L501.2200 8.5-10.1 mg/dL CA Normal 8.6 LAB L501.4100 15-37 U/L Low AST 12 LAB L501.4305 45-117 U/L Normal ALK P 79 LAB L501.4405 13-56 U/L Normal ALT 22 LAB L501.4600 0.20-1.00 mg/dL T Normal BILI 0.30 LAB L501.5300 136-145 mmol/L NA Normal 138 LAB L501.5600 3.5-5.1 mmol/L K Normal 4.4 LAB L501.5900 98-107 mmol/L CL Normal 104 LAB L501.6100 21.0-32.0 mmol/L Normal CO2 26.0 LAB L501.6200 5-15 Normal GAP 8 Performed By: #### L500.4050, L500.4100, L501.9520 #### [facility] [address] [place], [place], [id number] LIPID PROFILE Collected: 04/24/2018 Status: F Source: [place] 1:16 PM [facility] [place] TYPE CODE TESTS RESULT OUT OF RANGE REFERENCE UNITS LAB L501.4900 200 mg/dL High CHOL 218 Result Comment: <200 mg/dL Desirable 200-240 mg/dL Borderline >240 mg/dL High Risk LAB L501.5000 mg/dL Normal TRIG 115 Result Comment: The drugs N-Acetylcysteine and Metamizole may falsely depress this assay. Serum Triglycerides Reference Interval Normal <150 mg/dL Borderline high 150 - 199 mg/dL High 200 - 499 mg/dL Very High > or = 500 mg/dL LAB L501.6400 mg/dL Normal HDL 44 Result Comment: The drugs N-Acetylcysteine and Metamizole may falsely depress this assay. Reference Range HDL <40 mg/dL Low HDL Cholesterol HDL >or= 60 mg/dL High HDL Cholesterol LAB L501.6500 0-130 mg/dL High LDL 151 LAB L501.6600 5-40 mg/dL Normal VLDL 23 Performed By: #### L500.4050, L500.4100, L501.9520 #### [facility] [address] [place], [address] THYROID STIM HORMONE Collected: 04/24/2018 Status: F Source: [place] (TSH) 1:16 PM [facility] [place] TYPE CODE TESTS RESULT OUT OF RANGE REFERENCE UNITS LAB L501.9520 0.358-3.74 uIU/mL Normal TSH 2.91 Performed By: #### L500.4050, L500.4100, L501.9520 #### [facility] [address] [place], [address] 12 LEAD ELECTROCARDIOGRAM Observed: 02/25/2018 Status: F Source: [place] 1:40 PM [facility] [place] [place] [facility] Cardiovascular Services [address] [place] [address] 12 Lead EKG 02/22/18 1148 MR#: [id number] Acct: [id number] Name: RICHARD [place] Rep #: [id number] : 1935 82 From: Sathya Snider MD Attending Dr: Lalo Corona Status: REG CLI Ordering Dr: Lalo Hall PA-C Date: 02/22/18 Location: LAB Sex: F C Admitted: Test Reason : PRE OP Blood Pressure : / mmHG Vent. Rate : 090 BPM Atrial Rate : 090 BPM P-R Int : 136 ms QRS Dur : 122 ms QT Int : 356 ms P-R-T Axes : 052 012 026 degrees QTc Int : 435 ms Normal sinus rhythm Possible Left atrial enlargement Right bundle branch block Abnormal ECG Confirmed by AGATHA SALEH, SATHYA ([id number]), editor managing newspaper JENI JERONIMO ([id number]) on 02/25/2018 1:40:10 PM Referred By: Lalo Hall Confirmed By:SATHYA SNIDER MD 02/25/18 1349 Date Sathya Snider MD CC: Lalo DOUGLAS; Beck Napier MD Signed CBC-COMPLETE BLOOD CNT Collected: 02/22/2018 Status: F Source: [place] NO DIFF 11:20 AM [facility] [place] TYPE CODE TESTS RESULT OUT OF RANGE REFERENCE UNITS LAB L100.1000 4.4-11.0 K/mm3 Normal WBC 9.2 LAB L100.1200 4.2-5.4 M/mm3 Low RBC 3.88 LAB L100.1300 12.0-15.0 g/dl Low HGB 11.6 LAB L100.1400 37-47 % Low HCT 36.4 LAB L100.1500 81-99 fL Normal MCV 93.8 LAB L100.1600 27.0-32.0 pg Normal MCH 29.9 LAB L100.1700 32-36 g/gl Low MCHC 31.9 LAB L100.1810 11.6-14.6 % Normal RDW CV 14.3 LAB L100.1820 35.1-43.9 fl High RDW SD 48.6 LAB L100.1900 150-450 K/mm3 Normal PLT 268 LAB L100.2000 6.2-12.0 fl Normal MPV 9.5 Performed By: #### L100.0500 #### [facility] [place], [address] BASIC METABOLIC Collected: 02/22/2018 Status: F Source: [place] PROFILE (BMP) 11:20 AM [facility] [place] TYPE CODE TESTS RESULT OUT OF RANGE REFERENCE UNITS LAB L501.0100 74-106 mg/dL Low GLU 72 Result Comment: Please note revised GLUCOSE reference range effective 2017. LAB L501.1000 7-18 mg/dL High BUN 24 LAB L501.1100 0.55-1.02 mg/dL Normal CREAT,SERUM 0.97 Result Comment: The validity of the calculated GFR AND GFRAA in patients over 70 years has not been determined. Clinical correlation is essential. LAB L501.1110 >60 mL/min Low EST GFR 58 Result Comment: Non- GFR Calc LAB L501.1115 >60 mL/min Normal EST GFR - AA 70 Result Comment: GFR Calc LAB L501.1300 10-20 RATIO High BUN/CRE 24.6 LAB L501.2200 8.5-10.1 mg/dL CA Normal 9.0 LAB L501.5300 136-145 mmol/L NA Normal 140 LAB L501.5600 3.5-5.1 mmol/L K Normal 4.7 LAB L501.5900 98-107 mmol/L CL Normal 105 LAB L501.6100 21.0-32.0 mmol/L Normal CO2 26.0 LAB L501.6200 5-15 Normal GAP 9 Performed By: #### L500.2500 #### [facility] [place], [address] CBC W/DIFF, AUTOMATED Collected: 01/30/2018 Status: F Source: [place] 11:46 AM [facility] [place] TYPE CODE TESTS RESULT OUT OF RANGE REFERENCE UNITS LAB L100.1000 4.4-11.0 K/mm3 High WBC 15.4 LAB L100.1200 4.2-5.4 M/mm3 Normal RBC 4.33 LAB L100.1300 12.0-15.0 g/dl Normal HGB 13.2 LAB L100.1400 37-47 % Normal HCT 40.5 LAB L100.1500 81-99 fL Normal MCV 93.5 LAB L100.1600 27.0-32.0 pg Normal MCH 30.5 LAB L100.1700 32-36 g/gl Normal MCHC 32.6 LAB L100.1810 11.6-14.6 % Normal RDW CV 14.2 LAB L100.1820 35.1-43.9 fl High RDW SD 48.5 LAB L100.1900 150-450 K/mm3 Normal PLT 238 LAB L100.2000 6.2-12.0 fl Normal MPV 9.8 LAB L100.2100 47-70 % High NEUT% 87.0 LAB L100.2200 19-41 % Low LY% 6.3 LAB L100.2300 0-10 % Normal MONO% 5.5 LAB L100.2400 0-5 % Normal EO% 0.1 LAB L100.2500 0-1 % Normal BASO% 0.1 LAB L100.2550 0.0-0.9 % High IM GRAN % 1.000 Result Comment: IG% - Immature Granulocytes (promyelocytes, myelocytes and metamyelocytes) > 1% indicates that a LEFT SHIFT is Present. LAB L100.2620 2.0-7.7 X10 3/uL High Absolute Neut 13.4 LAB L100.2720 0.83-4.51 X10 3/ul Normal Absolute Lymph 0.97 Performed By: #### L100.0100 #### [facility] [address] [place], [address] VITAMIN D,25 HYDROXY Collected: 01/30/2018 Status: F Source: [place] 11:46 AM [facility] [place] TYPE CODE TESTS RESULT OUT OF REFERENCE UNITS RANGE LAB L506.1000 29.95-100.01 ng/mL Low Vitamin D 23.0 25-OH Result Comment: Vitamin D 25(OH) Status Range Deficiency <20 ng/mL (50nmol/L) Insuffciency 20 - 30 ng/mL (50 - 75 nmol/L) Sufficiency 30 - 100 ng/mL (75 - 250 nmol/L) Toxicity >100 ng/mL (>250 nmol/L) Performed By: #### L506.1000 #### [facility] [address] [place], [address] COMPREHENSIVE METABOLIC Collected: 01/30/2018 Status: F Source: [facility] 11:46 AM [facility] [place] TYPE CODE TESTS RESULT OUT OF RANGE REFERENCE UNITS LAB L501.0100 74-106 mg/dL Normal GLU 98 Result Comment: Please note revised GLUCOSE reference range effective 2017. LAB L501.1000 7-18 mg/dL High BUN 41 LAB L501.1100 0.55-1.02 mg/dL High CREAT,SERUM 1.10 Result Comment: The validity of the calculated GFR AND GFRAA in patients over 70 years has not been determined. Clinical correlation is essential. LAB L501.1110 >60 mL/min Low EST GFR 50 Result Comment: Non- GFR Calc LAB L501.1115 >60 mL/min Normal EST GFR - AA 61 Result Comment: GFR Calc LAB L501.1300 10-20 RATIO High BUN/CRE 37.3 LAB L501.1500 6.4-8.2 g/dL T Normal PROT 6.6 LAB L501.1800 3.2-5.0 g/dL Low ALB 3.1 LAB L501.1950 2.2-4.2 g/dL Normal GLOB 3.5 LAB L501.2000 0.9-2.4 RATIO Normal A/G 0.9 LAB L501.2200 8.5-10.1 mg/dL CA Normal 8.5 LAB L501.4100 15-37 U/L Normal AST 17 LAB L501.4305 45-117 U/L High ALK P 121 LAB L501.4405 13-56 U/L Normal ALT 35 LAB L501.4600 0.20-1.00 mg/dL T Normal BILI 0.40 LAB L501.5300 136-145 mmol/L NA Normal 137 LAB L501.5600 3.5-5.1 mmol/L K Normal 5.0 LAB L501.5900 98-107 mmol/L CL Normal 102 LAB L501.6100 21.0-32.0 mmol/L Normal CO2 26.0 LAB L501.6200 5-15 Normal GAP 9 Performed By: #### L500.4050, L500.4100, L501.9520 #### [facility] [address] [place], [address] LIPID PROFILE Collected: 01/30/2018 Status: F Source: [place] 11:46 AM [facility] [place] TYPE CODE TESTS RESULT OUT OF RANGE REFERENCE UNITS LAB L501.4900 200 mg/dL Normal CHOL 195 Result Comment: <200 mg/dL Desirable 200-240 mg/dL Borderline >240 mg/dL High Risk LAB L501.5000 mg/dL Normal TRIG 160 Result Comment: The drugs N-Acetylcysteine and Metamizole may falsely depress this assay. Serum Triglycerides Reference Interval Normal <150 mg/dL Borderline high 150 - 199 mg/dL High 200 - 499 mg/dL Very High > or = 500 mg/dL LAB L501.6400 mg/dL Normal HDL 50 Result Comment: The drugs N-Acetylcysteine and Metamizole may falsely depress this assay. Reference Range HDL <40 mg/dL Low HDL Cholesterol HDL >or= 60 mg/dL High HDL Cholesterol LAB L501.6500 0-130 mg/dL Normal LDL 113 LAB L501.6600 5-40 mg/dL Normal VLDL 32 Performed By: #### L500.4050, L500.4100, L501.9520 #### [facility] [address] [place], [place], [address] THYROID STIM HORMONE Collected: 01/30/2018 Status: F Source: [place] (TSH) 11:46 AM [facility] [place] TYPE CODE TESTS RESULT OUT OF RANGE REFERENCE UNITS LAB L501.9520 0.358-3.74 uIU/mL Normal TSH 2.77 Performed By: #### L500.4050, L500.4100, L501.9520 #### [facility] [address] [place], [address] L/S SPINE COMP/W Observed: 01/22/2018 Status: F Source: [place] BENDING VIEWS 12:31 PM [facility] [place] Imaging Services [address] [place] [address] L/S Spine Comp/w Bending Views MR#: [id number] Acct: [id number] Name: RICHARD [place] Rep #: [id number] : 1935 F 82 From: Terry Choudhary MD PCP: Beck Napier MD, Chi Status: REG CLI Study: L/S Spine Comp/w Bending Views Date of Exam: 01/22/18 Exam# [id number] Ordering Dr: Beck Napier MD STUDY: X-RAY - LUMBOSACRAL SPINE REASON FOR EXAM: Female, 82 years old. Low back and left leg pain. TECHNIQUE: 8 view(s) of the lumbosacral spine were obtained, including lateral weightbearing flexion-extension views. COMPARISON: None FINDINGS: Normal lumbar lordosis. There is no substantial scoliosis. There is a grade 1 spondylolisthesis of L3 on L4 and borderline retrolisthesis of L4 on L5, neither of which change with flexion and extension. Range of motion on flexion and extension is limited, however. There is rightward subluxation of L3 on L4, and a 16 degree levoscoliosis at L4-5. There is multilevel endplate spondylosis of the lumbar vertebrae. There is multi-level degenerative disc disease with multi-level disc space narrowing. There is depression of the superior L3 and L5 vertebral endplates with 25-30% loss of height at each level. There are degenerative arthroses of the lumbar facet articulations, with narrowing most prominent on the right at L4-5 and on the left at L5-S1. There is mild degenerative arthrosis of the bilateral sacroiliac joints with articular joint space narrowing and sclerosis. Normal visualized sacrum. There is atherosclerotic calcification of the abdominal aorta without a demonstrated aneurysm. Surgical clips of prior cholecystectomy project in the right upper quadrant of the abdomen. RAD/L/S Spine Comp/w Bending Views IMPRESSION: 1. 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 2. Degenerative changes of the spine, as detailed above. Mild vertebral displacements of the mid to lower spine appear fixed on flexion and extension, although range of motion is very limited. 3. Atherosclerotic calcific plaquing of the abdominal aorta. Electronically Signed: Cornell Choudhary MD at 19:46 EDT , Service support , CC: Beck Napier MD Animal Keeper Head: Signed DOWNTIME REPORT Observed: 01/10/2018 Status: F Source: [place] 12:26 PM [facility] Medical Records Department [address] [place] [address] Downtime Report MR#: [id number] Acct: [id number] Name: RICHARD [place] Rep #: [id number] : 1935 82 From: John Jeronimo PCP: Karthikeyan SALEH,Beck Flores Status: REG CLI This patient was seen during an EMR downtime December 24, 2017 - December 31, 2017. This patient may have a combination of paper and electronic documentation or all paper documentation. All documentation is viewable within the e-chart portion of [employer] [employer] for each patient visit. LOWER EXT JOINT ONLY Observed: 01/09/2018 Status: F Source: [place] (ROUTINE) 5:01 PM [facility] Imaging Services [address] [place] [address] Lower Ext Joint Only (Routine) MR#: [id number] Acct: [id number] Name: RICHARD HILLMAN Rep #: [id number] : 1935 F 82 From: Joaquim Coe MD PCP: Karthikeyan SALEH,Beck Flores Status: REG CLI Study: Lower Ext Joint Only (Routine) Date of Exam: 01/09/18 Exam# [id number] Ordering Dr: Beck Napier MD STUDY: MRI LEFT KNEE REASON FOR EXAM: Female, 82 years old. Left knee pain. Twisting injury 2 weeks ago. TECHNIQUE: Standardized fat and water weighted pulse sequences were obtained in all 3 orthogonal planes. COMPARISON: X-ray December 27, 2017 FINDINGS: There is loss of substance with tearing at the junction of the posterior horn and body of the medial meniscus, series 3 images 33/42 and 34/42. There is diffuse, greater than 50% thickness articular cartilage loss of the medial femorotibial compartment. Normal medial femoral condyle and tibial plateau. There is a partial sprain of the MCL with interstitial and periligamentous edema, series 6 images 15/30 through 17/30. Normal distal semimembranosus, gracilis and semitendinosus tendons. Normal lateral meniscus. There is diffuse, less than 50% thickness articular cartilage loss of the lateral femorotibial compartment. Normal lateral femoral condyle and tibial plateau. Normal proximal tibiofibular articulation. Normal lateral collateral (fibular) ligament. Normal popliteus tendon. Normal biceps femoris tendon. Normal anterior cruciate ligament (ACL). Normal posterior cruciate ligament (PCL). Normal congruent patellofemoral articulation. Normal hyaline cartilage of the patellofemoral compartment. Normal medial and lateral patellar retinaculum. Normal quadriceps tendon. Normal patellar tendon. Normal Hoffa's fat pad. There is a moderate volume joint effusion. The soft tissues are unremarkable. The otherwise visualized osseous structures are unremarkable. MRI/Lower Ext Joint Only (Routine) IMPRESSION: Medial meniscus tear Medial collateral ligament sprain. Joint effusion. Electronically Signed: Joaquim Coe MD at 18:55 EDT , Service support , CC: Beck Napier MD Animal Keeper Head: Signed EMERGENCY DEPARTMENT Observed: 01/06/2018 Status: F Source: [place] SUMMARY 7:45 AM [facility] [place] [facility] Medical Records Department [address] [place] [address] Emergency Department Summary 01/05/18 2245 MR#: [id number] Acct: [id number] Name: RICHARD HILLMAN Rep #: [id number] : 1935 82 From: Harvey Gomez MD PCP: Beck Napier MD, Chi Status: DEP ER - ER Visit Summary Date of Service: 01/05/18 Chief Complaint: Atraumatic left medial knee pain History of Present Illness: The patient is a 82 F complaining of atraumatic left medial knee pain for last 2 weeks. Previously did not has knee problems. She has never had knee surgery. She has not had any significant history of arthritis. She states 2 weeks ago she stepped up in her jeep and was sitting sat somewhat cramped and developed knee pain. She was seen in follow-up by her primary care physician Dr. Napier about a week ago he did a left knee joint injection using steroids. She said it gave her a little relief for a day or so but then became uncomfortable again. She denies any recent falls or trauma. She has been using a cane to ambulate. She denies any redness or fever. She has never had any type of knee surgery. Physical Examination: Older female no acute distress vital signs stable afebrile. HEENT exam unremarkable neck nontender lungs clear to auscultation bilaterally. Heart regular rate and rhythm no murmur. Abdomen soft nontender. She is moving all 4 extremities. They are neurovascularly intact. The left hip, ankle and foot are nontender neurovascular intact with normal range of motion. Left knee has medial knee joint tenderness. There is no ecchymosis or bruising no signs of trauma. No redness or warmth. No significant effusion. She is able to flex and extend with some discomfort medially. The ACL and PCL appear to be intact. The LCL is intact. The MCL has some pain with stressing but appears to have a good endpoint does not appear to be torn. There is also medial joint tenderness. There is absolutely no signs of a joint infection. Test Results: She had x-rays done within the last 2 weeks. I reviewed and showed some joint space narrowing but the bones appeared to look good. There is some degree of arthritis. I went over the x-rays with the patient explained to her that she may have a meniscal tear or wear and tear of the cartilage that is not seen on the x-ray. Emergency Department Course and Treatment: Patient referred to Dr. Finn Arechiga distribution analyst for orthopedics for follow-up. There is nothing further to do an ER tonight. She did not want pain meds she will use Aleve at home. Ice. Treatment Plan: Left medial knee pain suspect secondary to arthritis. Disposition: Discharged Impression: Left medial knee pain secondary to arthritis rule out intra-articular pathology This note was generated with Roll20 dictation software. It may contain incorrect words, spelling, and punctuation that were not noted in review of the chart prior to signing ED Disposition - Plan for ED Patient: Chief Complaint: Lower Extremity Injury Referrals: Beck Napier Chi, MD [Primary Care Provider] - What to do if you have Problems For any increased pain, shortness of breath, bleeding, nausea or vomiting, chest pain, or any unexpected problems, contact your Primary Care Provider. Call [facility] ([phone]) or report to the closest Emergency Room. Call 911 if necessary. 01/06/18 8729 <Electronically signed by Harvey Gomez MD> Date Harvey Gomez MD Cosigner Signature (If Indicated): Date CC: Beck Napier MD DISCHARGE INSTRUCTION Observed: 01/06/2018 Status: F Source: [place] 7:45 AM [facility] [place] [facility] Medical Records Department [address] [place] [address] Discharge Instruction 01/05/18 2250 MR#: [id number] Acct: [id number] Name: RICHARD HILLMAN Rep #: [id number] : 1935 82 From: Harevy Gomez MD PCP: Beck Napier MD, Chi Status: DEP ER ED Disposition - Plan for ED Patient: Disposition: Home or Assisted Living Chief Complaint: Lower Extremity Injury Instructions: ED Knee Pain [facility] Referrals: Beck Napier Chi, MD [Primary Care Provider] - Additional Instructions: Ice to the left knee. Aleve for pain and inflammation. Call and follow-up with Dr. Finn Arechiga or any orthopedic surgeon of your choice. What to do if you have Problems For any increased pain, shortness of breath, bleeding, nausea or vomiting, chest pain, or any unexpected problems, contact your Primary Care Provider. Call [facility] ([phone]) or report to the closest Emergency Room. Call 911 if necessary. 01/06/18 0745 <Electronically signed by Harvey Gomez MD> Date Harvey Gomez MD Cosigner Signature (If Indicated): Date CC: Beck Napier MD KNEE 4 OR MORE Observed: 12/27/2017 Status: F Source: [place] VIEWS 10:15 AM [facility] [place] [facility] Imaging Services [address] [place] [address] Knee 4 or More Views MR#: [id number] Acct: [id number] Name: RICHARD HILLMAN Rep #: [id number] : 1935 F 82 From: Bin Pineda MD PCP: Beck Napier MD, Chi Status: REG CLI Study: Knee 4 or More Views Date of Exam: 12/27/17 Exam# [id number] Ordering Dr: Beck Napier MD STUDY: X-RAY - LEFT KNEE REASON FOR EXAM: Female, 82 years old. Left knee pain TECHNIQUE: 4 view(s) of the knee. COMPARISON: None. FINDINGS: Normal visualized distal femur. Normal visualized proximal tibia and fibula. Normal proximal tibiofibular articulation. Normal medial femorotibial compartment. Normal lateral femorotibial compartment. Normal patellofemoral articulation. The soft tissue structures are unremarkable. RAD/Knee 4 or More Views IMPRESSION: Normal x-ray examination of the knee. Electronically Signed: Bin Pineda MD at 18:25 EDT , Service support , CC: Beck Napier MD Animal Keeper Head: Signed SCREENING MAMM (CAD), Observed: 11/19/2017 Status: F Source: [place] [facility] 9:14 AM [facility] [place] [facility] Imaging Services [address] [place] [address] SCREENING MAMM (CAD), BILAT MR#: [id number] Acct: [id number] Name: RICHARD HILLMAN Rep #: [id number] : 1935 F 82 From: Terry Bernardo MD PCP: Beck Napier MD, Chi Status: REG CLI Study: SCREENING MAMM (CAD), BILAT Date of Exam: 11/19/17 Exam# [id number] Ordering Dr: Beck Napier MD MAMMOGRAPHY - BILATERAL SCREENING 3-D GASTON SYNTHESIS REASON FOR EXAM: Female, 82 years old. Bilateral Screening 3-D tomosynthesis PERTINENT HISTORY: Sister with breast cancer.. TECHNIQUE: 2-D mammograms and 3-D Gaston synthesis of the breast (s) were performed. CAD was performed. COMPARISON: None. FINDINGS: The breast composition is composed of scattered fibroglandular density. Scattered benign calcifications are seen. No dense spiculated masses or suspicious microcalcifications are identified. No architectural distortion is identified. There is no skin thickening or retraction. Stable vascular, and punctate calcifications. There has been no significant change since the prior study. BI/SCREENING MAMM (CAD), BILAT IMPRESSION: No mammographic signs of malignancy. Routine yearly mammograms recommended. ASSESSMENT CATEGORY: BIRADS Category 2: Benign. A letter regarding these results will be sent to the patient by the facility within 30 days. FOLLOW UP RECOMMENDATION: Yearly follow up mammogram recommended. (A) Approximately 10% of breast cancers are not detected by mammography. A normal mammogram should not delay biopsy of a clinically suspicious abnormality. Electronically Signed: Cornell Bernardo MD at 11:39 EDT , Service support , CC: Beck Napier MD Animal Keeper Head: Signed CBC W/DIFF, AUTOMATED Collected: 10/24/2017 Status: F Source: [place] 10:31 AM [facility] [place] TYPE CODE TESTS RESULT OUT OF RANGE REFERENCE UNITS LAB L100.1000 4.4-11.0 K/mm3 Normal WBC 8.1 LAB L100.1200 4.2-5.4 M/mm3 Normal RBC 4.26 LAB L100.1300 12.0-15.0 g/dl Normal HGB 12.8 LAB L100.1400 37-47 % Normal HCT 39.6 LAB L100.1500 81-99 fL Normal MCV 93.0 LAB L100.1600 27.0-32.0 pg Normal MCH 30.0 LAB L100.1700 32-36 g/gl Normal MCHC 32.3 LAB L100.1810 11.6-14.6 % Normal RDW CV 13.4 LAB L100.1820 35.1-43.9 fl High RDW SD 44.0 LAB L100.1900 150-450 K/mm3 Normal PLT 273 LAB L100.2000 6.2-12.0 fl Normal MPV 10.6 LAB L100.2100 47-70 % Normal NEUT% 67.9 LAB L100.2200 19-41 % Normal LY% 23.3 LAB L100.2300 0-10 % Normal MONO% 6.9 LAB L100.2400 0-5 % Normal EO% 1.1 LAB L100.2500 0-1 % Normal BASO% 0.2 LAB L100.2550 0.0-0.9 % Normal IM GRAN % 0.600 Result Comment: IG% - Immature Granulocytes (promyelocytes, myelocytes and metamyelocytes) > 1% indicates that a LEFT SHIFT is Present. LAB L100.2620 2.0-7.7 X10 3/uL Normal Absolute Neut 5.5 LAB L100.2720 0.83-4.51 X10 3/ul Normal Absolute Lymph 1.89 Performed By: #### L100.0100 #### [facility] [address] [place], [place], [address] VITAMIN D,25 HYDROXY Collected: 10/24/2017 Status: F Source: [place] 10:31 AM [facility] [place] TYPE CODE TESTS RESULT OUT OF REFERENCE UNITS RANGE LAB L506.1000 29.95-100.01 ng/mL Low Vitamin D 21.5 25-OH Result Comment: Vitamin D 25(OH) Status Range Deficiency <20 ng/mL (50nmol/L) Insuffciency 20 - 30 ng/mL (50 - 75 nmol/L) Sufficiency 30 - 100 ng/mL (75 - 250 nmol/L) Toxicity >100 ng/mL (>250 nmol/L) Performed By: #### L506.1000 #### [facility] [address], [address] COMPREHENSIVE METABOLIC Collected: 10/24/2017 Status: F Source: [facility] 10:31 AM [facility] [place] TYPE CODE TESTS RESULT OUT OF RANGE REFERENCE UNITS LAB L501.0100 74-106 mg/dL High GLU 107 Result Comment: Fasting Glucose result from 100 to 125 mg/dL suggests IMPAIRED HOMEOSTASIS per A.D.A. criteria. Please note revised GLUCOSE reference range effective 2017. LAB L501.1000 7-18 mg/dL High BUN 28 LAB L501.1100 0.55-1.02 mg/dL High CREAT,SERUM 1.08 Result Comment: The validity of the calculated GFR AND GFRAA in patients over 70 years has not been determined. Clinical correlation is essential. LAB L501.1110 >60 mL/min Low EST GFR 51 Result Comment: Non- GFR Calc LAB L501.1115 >60 mL/min Normal EST GFR - AA 62 Result Comment: GFR Calc LAB L501.1300 10-20 RATIO High BUN/CRE 25.9 LAB L501.1500 6.4-8.2 g/dL T Normal PROT 7.8 LAB L501.1800 3.2-5.0 g/dL Normal ALB 3.5 LAB L501.1950 2.2-4.2 g/dL High GLOB 4.3 LAB L501.2000 0.9-2.4 RATIO Low A/G 0.8 LAB L501.2200 8.5-10.1 mg/dL CA Normal 8.7 LAB L501.4100 15-37 U/L Low AST 13 LAB L501.4305 45-117 U/L Normal ALK P 96 LAB L501.4405 13-56 U/L Normal ALT 24 Result Comment: Please note revised ALT reference range effective 2017. LAB L501.4600 0.20-1.00 mg/dL Normal T BILI 0.20 LAB L501.5300 136-145 mmol/L Normal NA 141 LAB L501.5600 3.5-5.1 mmol/L Normal K 4.3 LAB L501.5900 98-107 mmol/L Normal CL 106 LAB L501.6100 21.0-32.0 mmol/L Normal CO2 26.0 LAB L501.6200 5-15 Normal GAP 9 Performed By: #### L500.4050, L500.4100, L501.9520 #### [facility] [address] [place], [address] LIPID PROFILE Collected: 10/24/2017 Status: F Source: [place] 10:31 AM [facility] [place] TYPE CODE TESTS RESULT OUT OF RANGE REFERENCE UNITS LAB L501.4900 200 mg/dL High CHOL 236 Result Comment: <200 mg/dL Desirable 200-240 mg/dL Borderline >240 mg/dL High Risk LAB L501.5000 mg/dL Normal TRIG 175 Result Comment: The drugs N-Acetylcysteine and Metamizole may falsely depress this assay. Serum Triglycerides Reference Interval Normal <150 mg/dL Borderline high 150 - 199 mg/dL High 200 - 499 mg/dL Very High > or = 500 mg/dL LAB L501.6400 mg/dL Low HDL 35 Result Comment: The drugs N-Acetylcysteine and Metamizole may falsely depress this assay. Reference Range HDL <40 mg/dL Low HDL Cholesterol HDL >or= 60 mg/dL High HDL Cholesterol LAB L501.6500 0-130 mg/dL High LDL 166 LAB L501.6600 5-40 mg/dL Normal VLDL 35 Performed By: #### L500.4050, L500.4100, L501.9520 #### [facility] [address] [place], [address] THYROID STIM HORMONE Collected: 10/24/2017 Status: F Source: [place] (TSH) 10:31 AM [facility] [place] TYPE CODE TESTS RESULT OUT OF RANGE REFERENCE UNITS LAB L501.9520 0.358-3.74 uIU/mL High TSH 5.83 Performed By: #### L500.4050, L500.4100, L501.9520 #### [facility] [address] [place], [address] ALLERGIES ALLERGIES DATE TYPE / CODE NAME / CODE REACTION SEVERITY SOURCE 01/05/2018 Drug latex/A89625 Rash Unknown [facility] Allergy/4160 8921(RXNORM) Hospital 16091(SNOMED Repository CT) ENCOUNTERS ENCOUNTERS ADMIT/DISCHARGE ACCOUNT ADMITTING ENCOUNTER LOCATION SOURCE NUMBER CLASS 08/07/2018 [id number] Ambulatory [place] [facility] ing:LAB Repository 06/26/2018 [id number] Ambulatory [place] [facility] ing:OPBD Repository 04/24/2018 [id number] Ambulatory [place] [facility] ing:POLAB3 Repository 02/22/2018 [id number] Ambulatory [place] [facility] ing:LAB Repository 02/22/2018 [id number] Ambulatory BMSBuilding:W [place] [facility] Repository 01/30/2018 [id number] Ambulatory [place] [facility] ing:POLAB3 Repository 01/29/2018 [id number] Ambulatory BMSBuilding:B [place] 4 [facility] Repository 01/22/2018 [id number] Ambulatory [place] [facility] ing:RAD Repository 01/09/2018 [id number] Amb[place] [facility] ing:MRI Repository 01/05/2018/ [id number] Emergency [place] [facility] ing:ED Repository 12/27/2017 [id number] Ambulatory [place] [facility] ing:RAD Repository 11/19/2017 [id number] Ambulatory [place] [facility] ing:OPBI Repository 10/24/2017 [id number] Ambulatory [place] [facility] ing:POLAB3 Repository PAYERS PAYERS ENCOUNTER GUARANTOR PAYER SUBSCRIBER SOURCE 08/07/2018 [place] Primary EL[place] [id number] Insurance:HUMANA CHANCEB: [facility] ANGLING MEDICARE [facility] [id number]: Repository [address]Qoa: 234 [id number] [phone] () Date:4748-46-53MI [address] [place] [address]MU: 08/07/2018 Secondary NOT GIVENUNK [place] Insurance:SELF PAY [facility] Number: Effective Repository Date:2018-08-07 06/26/2018 ELANORA Primary ELANORA [place] [id number] Insurance:HUMANA KADYDOB: [facility] ANGLING MEDICARE [facility] [id number] Number: Repository [address]Yst: 234 [id number] [phone] () Date:2555-50-45QL [address] [place] [address]JR: 06/26/2018 Secondary NOT GIVENUNK [place] Insurance:SELF PAY [facility] Number: Effective Repository Date:2018-06-21 04/24/2018 ELANORA Primary ELANORA [place] [id number] Insurance:HUMANA KADYDOB: [facility] ANGLING MEDICARE [facility] [id number] Number: Repository [address]Vco: ([phone] [id number] [phone] () Date:3511-46-62DF [address] [address]NK: 04/24/2018 Secondary NOT GIVENUNK [place] Insurance:SELF PAY [facility]: Effective Repository Date:2018-04-24 02/22/2018 ELANORA Primary ELANORA [place] [id number] Insurance:HUMANA THOMASDOB: Community [address] MEDICARE [facility]olic [id number] [place] Number: Repository [address]Rky: (234 [id number] [phone] () Date:3056-96-27VK [address] [address]FP: 02/22/2018 Secondary NOT GIVENUNK [place] Insurance:SELF PAY [facility]: Effective Repository Date:2018-02-22 02/22/2018 ELANORA Primary ELANORA [place] [id number] Insurance:HUMANA THOMASDOB: Community [address] MEDICARE [facility] [id number] Memorial Hospital [place] Number: Repository [address]Wsf: (234) [id number] [phone] () Date:0479-72-04OV [address] [address]UU: 02/22/2018 Secondary NOT GIVENUNK [place] Insurance:SELF PAY [facility] Number: Effective Repository Date:2018-02-22 01/30/2018 [place]ORA Primary ELANORA [place] [id number] Insurance:HUMANA THOMASDOB: Community [address] MEDICARE [facility] [id number] [place] Number: Repository [address]Shv: (234 [id number] [phone] () Date:5338-52-77ZU [address] [address]ZI: 01/30/2018 Secondary NOT GIVENUNK [place] Insurance:SELF PAY [facility] Number: Effective Repository Date:2018-01-30 01/29/2018 ELANORA Primary ELAN[place]A [place] [id number] Insurance:HUMANA KADYDOB: Community [address] MEDICARE [facility] [id number] [facility] University [facility] Number: Repository [address]Lzh: (234) [id number] [phone] (HP) Date:3282-07-28NI [address] [address]AZ: 01/29/2018 Secondary NOT GIVENUNK [place] Insurance:SELF PAY [facility] Number: Effective Repository Date:2018-01-25 01/22/2018 ELANORA Primary ELANORA [place] [id number] Insurance:HUMANA KADYDOB: Community [address] MEDICARE [facility] [id number] [facility] University [facility] Number: Repository [address]Aha: (234) [id number] [phone] (HP) Date:9727-46-00JB [address]46[address]WP: 01/22/2018 Secondary NOT GIVENUNK [place] Insurance:SELF PAY [facility] Number: Effective Repository Date:2018-01-22 01/09/2018 ELANORA Primary ELANORA [place] [id number] Insurance:HUMANA KADYDOB: Community [address] MEDICARE [facility] [id number] [facility] Number: Repository [address]Qqi: (234) [id number] [phone] () Date:4992-18-06LX [place] [address]WP: 01/09/2018 Secondary NOT GIVENUNK [place] Insurance:SELF PAY [facility] Number: Effective Repository Date:2018-01-08 01/05/2018 ELANORA Primary ELANORA [place] [id number] Insurance:HUMANA KADYDOB: Community [address] MEDICARE [facility] [id number] [facility] Number: Repository [id number]: (234) [id number] [phone] (HP) Date:0156-62-97[place] [address]WP: 01/05/2018 Secondary NOT GIVENUNK [place] Insurance:SELF PAY [facility] Number: Effective Repository Date:2018-01-05 12/27/2017 [facility] [place] [id number] Insurance:HUMANA THOMASDOB: Community [address] MEDICARE OPolic [id number] [facility] University Health [facility], [place] Number: Repository [address]Rxo: ([phone] [id number] [phone] () Date:1525-12-85CX [address] [place] [address]HF: 12/27/2017 Secondary NOT GIVENUNK [place] Insurance:SELF PAY [facility] Number: Effective Repository Date:2017-12-27 11/19/2017 [facility] [place] [id number] Insurance:HUMANA THOMASDOB: Community [address] MEDICARE [facility] [id number] [facility] University Health [facility] Number: Repository [address]Yrq: (234 [id number] [phone] () Date:8758-55-89MR [address] [address]BR: 11/19/2017 Secondary NOT GIVENUNK [place] Insurance:SELF PAY [facility] Number: Effective Repository Date:2017-10-24 10/24/2017 [facility] [place] [id number] Insurance:HUMANA THOMASDOB: Community [address] MEDICARE [facility] [id number] [facility] University [facility], [place] Number: Repository [id number]: (234 [id number] [phone] () Date:8985-36-63FT [address] [place] [address]KE: 10/24/2017 Secondary NOT GIVENUNK [place] Insurance:SELF PAY [facility] Number: Effective Repository Date:2017-10-24
== END ==
PROVIDERS: Family Provider Family Medicine Geriatric Medicine; PCP Family Medicine Geriatric Medicine; Referring Provider Anesthesiology Pain Medicine; Visit Provider Anesthesiology Pain Medicine
DX: F11.20 Opioid dependence, uncomplicated (principal)
CPT/HCPCS: 80307

== ENCOUNTER → 2018-10-23 12:15 | Outpatient (CLI) | payer MEDICARE, SELFPAY ==
[2018-10-23 13:56] LABS: Absolute Lymphocyte Count 1.37 X10^3/ul (0.83-4.51); Absolute Neutrophil Count 8.9 X10^3/uL (2.0-7.7); Basophil# 0.01 X10^3/uL; Basophil% 0.1 % (0-1); Eosinophil# 0.01 X10^3/uL; Eosinophils% 0.1 % (0-5); Hematocrit 39.3 % (37-47); Hemoglobin 12.9 g/dl (12.0-15.0); Lymphocyte # 1.37 X10^3/ul (4.0); Lymphocyte % 12.2 % (19-41); Mean Corp Hgb Conc 32.8 g/gl (32-36); Mean Corpuscular Hgb 30.1 pg (27.0-32.0); Mean Corpuscular Volume 91.6 fL (81-99); Mean Platelet Vol. 10.6 fl (6.2-12.0); Monocyte# 0.96 X10^3/uL; Monocyte% 8.5 % (0-10); Neutrophil # 8.86 X10^3/uL (2.7-7.7); Neutrophil % 78.7 % (47-70); Platelet Count 261 K/mm3 (150-450); RBC Distribution Width CV 13.5 % (11.6-14.6); RBC Distribution Width SD 44.1 fl (35.1-43.9); Red Blood Count 4.29 M/mm3 (4.2-5.4); White Blood Count 11.3 K/mm3 (4.4-11.0)
[2018-10-23 13:57] LABS: POSITIVE COUNT NO; POSITIVE DIFFERENTIAL NO; POSITIVE MORPHOLOGY NO
[2018-10-23 14:17] LABS: Vitamin D,25 Hydroxy 37.6 ng/mL (29.95-100.01)
[2018-10-23 14:24] LABS: AST(SGOT) 18 U/L (15-37); Alanine Aminotransfer ALT/SGPT 21 U/L (13-56); Albumin, Serum 3.6 g/dL (3.2-5.0); Alkaline Phosphatase 82 U/L (45-117); Anion Gap 6 (5-15); BUN 26 mg/dL (7-18); BUN/Creat Ratio 27.2 RATIO (10-20); Calcium,Total 8.8 mg/dL (8.5-10.1); Chloride 106 mmol/L (98-107); Cholesterol 215 mg/dL (200); Creatinine, Serum 0.96 mg/dL (0.55-1.02); EST Glomerular Filtration Rate 59 mL/min (>60); Est Glom Filt Rate - Afr Amer 71 mL/min (>60); Globulin 3.6 g/dL (2.2-4.2); Glucose 91 mg/dL (74-106); High Density Lipoprotein 45 mg/dL; Protein, Total 7.2 g/dL (6.4-8.2); Sodium Level 138 mmol/L (136-145); Thyroid Stim Hormone (TSH) 1.36 uIU/mL (0.358-3.74); Triglycerides 132 mg/dL; Very Low Density Lipoprotein 26 mg/dL (5-40)
== END ==
PROVIDERS: Family Provider Family Medicine Geriatric Medicine; PCP Family Medicine Geriatric Medicine; Visit Provider Family Medicine Geriatric Medicine
DX: E55.9 Vitamin D deficiency, unspecified (principal); I10 Essential (primary) hypertension; E78.5 Hyperlipidemia, unspecified
CPT/HCPCS: 36415; 80053; 80061; 82306; 84443; 85025

== ENCOUNTER → 2018-10-29 | Outpatient (CLI) | payer MEDICARE, SELFPAY ==
[2018-10-29 13:49] LABS: Amphetamine Urine VISTA NEGATIVE (<1000 ng/mL); Barbiturate Urine VISTA NEGATIVE (< 200 ng/mL); Benzodiazepine Urine VISTA NEGATIVE (< 200 ng/mL); Cocaine Urine VISTA NEGATIVE (< 300 ng/mL); Ecstacy Urine VISTA NEGATIVE (< 500 ng/mL); Methadone Urine VISTA NEGATIVE (< 300 ng/mL); PCP Urine VISTA NEGATIVE (< 25 ng/mL); THC Urine VISTA NEGATIVE (< 50 ng/mL); Vista UDS pH Range 5
== END | disposition home or self-care (01) ==
LOC: LAB 12:17
PROVIDERS: Family Provider Family Medicine Geriatric Medicine; PCP Family Medicine Geriatric Medicine; Referring Provider Anesthesiology Pain Medicine; Visit Provider Anesthesiology Pain Medicine
DX: F11.20 Opioid dependence, uncomplicated (principal)
CPT/HCPCS: 80307

== ENCOUNTER 2023-06-12 13:00 | Outpatient (RCR) | payer MEDICARE, SELFPAY ==
--- NOTE | 2023-05-02 16:02 | HP.PTEVAL_ITS ---
Patient's Visit Information Visit Information Visit Information: RICHARD HILLMAN is a 88 year old F referred to Physical Therapy by Dr. Beck Napier MD with a diagnosis of multiple fals. Date of Evaluation: 05/01/23 Physical Therapist: BRITTNY Vasquez Visit Plan Frequency: 2x /Week Duration: 2 Months Plan: 2X/ week for 8 weeks for Balance (functional, dynamic and static), BW Walking, gait mechanics (including stride length), stairs, foam balance work with some LE functional strength with HEP Subjective Subjective: She has pain in her R hip and L knee (4 years ago had surgery and cleaned it out). She reports that she starts to stagger when she sits really long. She has a really thick cushion to sit on and she can walk better when she gets up. Sitting is bad for her back. Sitting in the car down to [facility] she was in pain for 2 weeks afterwards. She uses a cane. She has not had any falls since (she was leaning fw sitting on a chair and slid off the chair but she caught herself and was able to get back up but really messed her head up with 1 stitch at the hairline. She does not drive and has not for a long time. She feels that her legs are weak. She struggles to get out of a chair at times and uses her arms to get out of a chair. She has some trouble at times rolling over in bed. She is very careful on her basement steps (one at a time using her clothes basket). Pt has a fear of falling. She has a rollator and regular walker at home but only uses it when she has bad cramps to try and walk out the cramps in her legs. Pain R hip pain: Pain Intensity (Out of 10): 4 Objective Objective: Gait: walks with shorter stride and does not clear her stance foot. Some veering with gait. LE MMT: R hip flex 8.2 and L 7.1 R knee ext 9.6 and L knee ext 9.6 R knee flex 8.8 and L 8.2 FGA: 5 Standing heel and toe raises: Pt is able X 5 each direction holding onto the murray railing Balance/Special Test Scores Functional Gait Assessment Score: 5 % Disability: 83.3400 Lower Extremity Functional Score: 33 Goals Goal 1:: I HEP Goal Time Frame: 6-8 Weeks Goal 2:: Be able to walk back to the treatment room with increase stride and less veering Goal Time Frame: 6-8 Weeks Goal 3:: Increase overall balance (score on FGA at eval was 5) Goal Time Frame: 6-8 Weeks Goal 4:: Increase overall confidence with balance by 50% Goal Time Frame: 6-8 Weeks Rehabilitation Potential Rehabilitation Potential: Good Anticipated Interventions Patient/Client Instruction: Educate patient on: Condition and Plan of Care For the Purpose of:: To increase ROM, To improve nutrient delivery to tissue, To improve muscle performance and motor function, To improve ability to perform ADL's, To increase tolerance to activity/condition/position, To improve performance and independence with ADL's, To decrease level of supervision to perform tasks, To improve ability of physical actions for home/community/work/leisure, To improve gait and locomotor functions, To improve endurance, To improve balance and To improve safety with gait Therapeutic Exercise to Include: Strength training, Endurance training, Balance training, Postural training, Gait and locomotor training, Neuromotor development, Active ROM and Dynamic Lumbar Stabilization For the Purpose of:: To improve muscle performance and motor function, To improve ability to perform ADL's, To increase tolerance to activity/condition/position, To improve performance and independence with ADL's, To decrease level of supervision to perform tasks, To improve ability of p hysical actions for home/community/work/leisure, To improve gait and locomotor functions, To improve endurance, To improve balance, To improve safety with gait and To assume or resume ADL's Functional Training to Include: Gait training For the Purpose of:: To improve gait and locomotor functions and To improve safety with gait Text: Thank you for the opportunity to evaluate your patient. For Medicare and Medicare HMO plans, please review the plan of care and approve it. It will need to be FAXED BACK to us at [phone] for Medicare purposes. For Medicare only, by signing this I certify the plan of care. Please let me know if there are questions or concerns regarding this plan of care. Physician Signature: Date:
--- NOTE | 2023-09-17 15:32 | HP.PT.NRP ---
Patient Information Patient Information: RICHARD HILLMAN was seen in my office for initial evaluation on 05/01/23. The following Plan of Care was established for this patient: POC Established Initial Frequency: 2x /Week Initial Duration: 2 Months Anticipated Interventions Patient/Client Instruction: Educate patient on: Condition and Plan of Care For the Purpose of:: To increase ROM, To improve nutrient delivery to tissue, To improve muscle performance and motor function, To improve ability to perform ADL's, To increase tolerance to activity/condition/position, To improve performance and independence with ADL's, To decrease level of supervision to perform tasks, To improve ability of physical actions for home/community/work/leisure, To improve gait and locomotor functions, To improve endurance, To improve balance and To improve safety with gait Therapeutic Exercise to Include: Strength training, Endurance training, Balance training, Postural training, Gait and locomotor training, Neuromotor development, Active ROM and Dynamic Lumbar Stabilization For the Purpose of:: To improve muscle performance and motor function, To improve ability to perform ADL's, To increase tolerance to activity/condition/position, To improve performance and independence with ADL's, To decrease level of supervision to perform tasks, To improve ability of physical actions for home/community/work/leisure, To improve gait and locomotor functions, To improve endurance, To improve balance, To improve safety with gait and To assume or resume ADL's Functional Training to Include: Gait training For the Purpose of:: To improve gait and locomotor functions and To improve safety with gait Last Seen Last Seen: This patient was last seen in our office 06/12/23. Pertinent comments regarding their Physical therapy will appear below: BENITA PT At this point I will be discontinuing this patient from physical therapy. I would be happy to see this patient again in the future if found appropriate by the physician. Thank you! Shanice Aviles, BRITTNY Balance/Gait/Functional tests Balance/Special Test Scores Functional Gait Assessment Score: 5 % Disability: 83.3400 Lower Extremity Functional Score: 33
== END 2023-06-12 19:00 | disposition home or self-care (01) ==
LOC: PT 13:00
PROVIDERS: PCP Family Medicine Geriatric Medicine; Visit Provider Family Medicine Geriatric Medicine
DX: R29.6 Repeated falls (principal)
CPT/HCPCS: 97110; 97161

== ENCOUNTER → 2023-08-16 | Outpatient (CLI) | payer MEDICARE, SELFPAY ==
[2023-08-16 16:43] LABS: AST(SGOT) 18 U/L (15-37); Alanine Aminotransfer ALT/SGPT 22 U/L (13-56); Albumin, Serum 3.4 g/dL (3.2-5.0); Alkaline Phosphatase 86 U/L (45-117); Bilirubin, Direct 0.09 mg/dL (0.00-0.30); Cholesterol 129 mg/dL (200); Globulin 3.5 g/dL (2.2-4.2); High Density Lipoprotein 49 mg/dL; Protein, Total 6.9 g/dL (6.4-8.2); Triglycerides 116 mg/dL; Very Low Density Lipoprotein 23 mg/dL (5-40)
== END | disposition home or self-care (01) ==
LOC: LAB 13:31
PROVIDERS: PCP Family Medicine Geriatric Medicine; Referring Provider Nurse Practitioner Gerontology; Visit Provider Nurse Practitioner Gerontology
DX: I25.10 Atherosclerotic heart disease of native coronary artery without angina pectoris (principal)
CPT/HCPCS: 36415; 80061; 80076

== ENCOUNTER 2023-10-31 16:06 | Inpatient (IN) | payer MEDICARE, SELFPAY ==
[2023-10-31 16:07] VITALS: BP 187/72; PULSE 72; RESP 16; TEMP 36.8; O2SAT 97
--- NOTE | 2023-10-31 16:29 | EDS_ITS ---
HPI History of Present Illness HPI Narrative: Patient presents with left hip pain that began after a fall today. Patient states she was sitting on the end of the bed when she fell onto the floor. Patient states she has pain in her left hip. Patient states it is worse with weightbearing and better with rest. Patient denies any head injury or loss of consciousness. Patient also admits to a skin tear to her left lower leg. Patient states her last tetanus was within 5 years. Chief Complaint: Lower Extremity Injury Informant: patient and family Occured/Mechanism Mechanism/Context: Yes fall Onset/Context/Timing Onset: Today Context: Sudden Onset Timing: Continuous Quality of Pain: Sharp Worsened by: Weightbearing Relieved by: Rest Associated Symptoms Associated Symptoms: Negative for Parasthesia or Weakness PFSH [facility] Medical History Depression Ear infection Hypertension Hypothyroidism Syncope Home Medications cyanocobalamin (vitamin B-12) 500 mcg tablet 1,000 mcg PO DAILY@0800 suppliment 01/05/18 [History Last Taken Unknown] losartan 100 mg tablet 100 mg PO DAILY blood pressure 01/05/18 [History Last Taken Unknown] cholecalciferol (vitamin D3) 25 mcg (1,000 unit) capsule (Vitamin D3) 1,000 unit PO DAILY suppliment 06/17/23 [History Last Taken Unknown] citalopram 10 mg tablet 10 mg PO DAILY mood 06/17/23 [History Last Taken Unknown] levothyroxine 150 mcg tablet 150 mcg PO DAILY thyroid 06/17/23 [History Last Taken Unknown] amlodipine 5 mg tablet 5 mg PO DAILY bp 30 days #30 tabs 06/19/23 [Rx Last Taken Unknown] aspirin 81 mg chewable tablet 81 mg PO BREAKFAST blood thinner #30 tabs 06/19/23 [Rx Last Taken Unknown] atorvastatin 40 mg tablet 20 mg (1/2 x 40 mg) PO QHS hld 30 days #15 tabs 06/19/23 [Rx Last Taken Unknown] metoprolol succinate 50 mg tablet,extended release 24 hr 50 mg PO QHS heart 10/31/23 [History Last Taken Unknown] Allergy/AdvReac Type Severity Reaction Status Date / Time latex Allergy Rash Verified 10/31/23 16:07 Family History (Updated 10/31/23 @ 19:[address] Zan Aguirre MD) Other Cancer Heart disease Surgical History History of eye surgery Social History housing: house Smoking Status: Former smoker ROS ROS ED Constitutional Constitutional ED: Denies chills or fever(s) Eyes Eyes: Denies blurry vision or change in vision ENT ENT ED: Denies rhinorrhea or sore throat Cardiovascular Cardiovascular: Denies chest pain or palpitations Respiratory/Chest Respiratory/Chest: Denies cough or dyspnea Gastrointestinal Gastrointestinal: Denies nausea or vomiting Genitourinary Genitourinary ED: Denies dysuria or hematuria Musculoskeletal Musculoskeletal: Reports neck pain; Denies back pain Integumentary Denies abscess or rash Neurologic Neurologic: Denies headache(s) or weakness Allergic/Immunologic Allergic/Immunologic ED: Denies mouth swelling or urticaria EXAM Physical Exam Const Vital Signs: 10/31/23 16:07 10/31/23 19:16 Temperature 98.3 F Temperature Source Temporal Pulse Rate 72 78 Respiratory Rate 16 16 Blood Pressure 187/72 H 143/64 H Blood Pressure Mean 110 90 Pulse Ox 97 99 Oxygen Delivery Method Room Air Room Air Positive well nourished and well developed General Appearance ED: well developed and NAD HEENT Reports moist mucous membranes Extremity Extremity Narrative: There is a superficial skin tear over the lateral aspect of the left lower leg. There is no tenderness over the lower leg noted. There is tenderness over the left hip and pelvis area. There is no deformity noted. There is no pain with internal and external rotation. Range of motion was limited in flexion of the hip secondary to pain. Pedal pulses are equal bilaterally. Sensation was intact to light touch bilaterally in the lower extremities. There is good range of motion of the ankles bilaterally. Neuro oriented x3, CN's II-XII intact bilaterally, moves all extremities and no sensory deficits noted Sensorium / Orientation: alert Motor Exam: strength 5/5 throughout Psych mental status grossly normal MDM MDM MDM Narrative Medical decision making narrative: Differential diagnosis includes hip contusion, fracture, and pelvic fracture. X-rays of the left hip and pelvis will be obtained to assess for fracture. Radiography Diagnostic Testing: Clinical Impression(s) from Imaging Studies Hip/Pelvis X-Ray 10/31/23 16:50 IMPRESSION: Acute mildly displaced fractures of the left superior and inferior pubic rami.. Cannot definitively exclude minimally impacted fracture of the left femoral neck. CT recommended for further evaluation Electronically Signed: Harvey Richter MD at 17:26 EDT , Lower Extremity CT 10/31/23 18:18 IMPRESSION: Acute fractures of the left inferior and superior pubis with swelling of the obturator internus and hamstrings insertion No evidence for acute hip fracture or dislocation Electronically Signed: Harvey Richter MD at 18:50 EDT , X-rays of the left hip were obtained. There are 3 views. On my independent interpretation, there are fractures of the left superior and inferior pubic rami. There there is mild displacement of the fractures. Radiologist also interpreted the x-rays and agrees. Radiologist also reported that he cannot definitely exclude a minimally impacted fracture of the left femoral neck. CT scan of the left hip was recommended by radiologist for further evaluation. Because of the radiologist recommendation, CT scan of the left hip was obtained. There is no fracture of the left hip. There is fractures of the left inferior and superior pubic ramus. This was interpreted by the radiologist and was also independently reviewed by myself. Management Discussion w/another healthcare provider: Hospitalist Treatment and Re-Evaluation Narrative: Patient was given a dose of [place] here. Patient and family were advised of the findings. Patient attempted ambulation. Patient was unable to ambulate due to the pain. Because of this, I recommended admission to the hospital. Case was discussed with the hospitalist. He will admit the patient to his service. Patient and family understood and were agreeable with the plan. All questions were answered. Discharge Plan Dx/Rx/DC Orders Clinical Impression: Closed fracture of left inferior pubic ramus, Closed fracture of left superior pubic ramus, Fall Disposition Disposition: Acute Care Hospital [facility] Discharge Date/Time: 10/31/23 20:18
[2023-10-31] MEDS: HYDROcodone Bitartrate/Apap 5/325 Tablet PO (16:43)
--- NOTE | 2023-10-31 16:50 | RAD_ITS ---
STUDY: X-RAY - PELVIS AND LEFT HIP REASON FOR EXAM: Female, 88 years old. Injury/Pain TECHNIQUE: 3 views of the pelvis and hip. COMPARISON: None. FINDINGS: There is a non-specific bowel gas pattern. Normal visualized soft tissue structures. Normal bilateral iliac wings, sacroiliac joints and visualized sacrum. There are acute mildly displaced fractures of the left superior and inferior pubic rami. Normal pubic symphysis. Normal bilateral ischial tuberosities. Lumbar spine demonstrates scoliosis and degenerative change On the oblique view there is very subtle foreshortening of the lateral femoral neck possibly due to minimally impacted fracture.. Normal acetabulum. Normal hip joint. RAD/HIP, UNI W/ Pelvis 2-3 Views IMPRESSION: Acute mildly displaced fractures of the left superior and inferior pubic rami.. Cannot definitively exclude minimally impacted fracture of the left femoral neck. CT recommended for further evaluation Electronically Signed: Harvey Richter MD at 17:26 EDT ,
--- NOTE | 2023-10-31 18:18 | CT_ITS ---
CT LEFT LOWER EXTREMITY WITH 3-D IMAGING CLINICAL INDICATION: Hip pain TECHNIQUE: Axial CT images of the LEFT lower extremity was performed IV contrast material. Coronal and sagittal reformats were provided. RADIATION DOSAGE (If Supplied By Facility): CTDIvol = ( 18.13 ) mGy, DLP = ( 633.91 ) mGycm COMPARISON: FINDINGS: Bones: There is an acute minimally displaced fracture of the distal left superior pubic ramus.. There is also an impacted fracture of the left inferior pubic ramus with mild overlapping and anterior angulation of fracture fragments.. The left hip is intact as is the acetabulum Lumbar spine demonstrates degenerative change Soft Tissues: There is mild swelling of the obturator internus and left proximal hamstring insertion. There is also a hematoma in the left anterior pelvis mildly displacing the bladder.. CT/Extremity Lower without Contra IMPRESSION: Acute fractures of the left inferior and superior pubis with swelling of the obturator internus and hamstrings insertion No evidence for acute hip fracture or dislocation Electronically Signed: Harvey Richter MD at 18:50 EDT ,
[2023-10-31 19:16] VITALS: BP 143/64; PULSE 78; RESP 16; O2SAT 99
--- NOTE | 2023-10-31 19:48 | PCM.HP.STD ---
HPI - General General Date of Admission: 10/31/23 HPI Narrative RICHARD HILLMAN, is a 88 F who presents to the hospital from assisted living after mechanical fall. She was trying to sit on the edge of her bed when she lost her balance and slid to the ground. She developed some pubic pain and had difficulty ambulating because of that pain. She presented to the ER and was found to have left superior and inferior pubic rami fractures that were mildly displaced. A CT scan was obtained of her hip to evaluate for possible femoral neck fracture which was also negative. She was attempted to be ambulated in the ER however she could not tolerate any weightbearing activity so she was admitted for physical therapy evaluation and disposition planning. She denies any fevers or chills or any shortness of breath or signs of infection. [facility] Medical History Depression Ear infection Hypertension Hypothyroidism Syncope Home Medications cyanocobalamin (vitamin B-12) 500 mcg tablet 1,000 mcg PO DAILY@0800 suppliment 01/05/18 [History Last Taken Unknown] losartan 100 mg tablet 100 mg PO DAILY blood pressure 01/05/18 [History Last Taken Unknown] cholecalciferol (vitamin D3) 25 mcg (1,000 unit) capsule (Vitamin D3) 1,000 unit PO DAILY suppliment 06/17/23 [History Last Taken Unknown] citalopram 10 mg tablet 10 mg PO DAILY mood 06/17/23 [History Last Taken Unknown] levothyroxine 150 mcg tablet 150 mcg PO DAILY thyroid 06/17/23 [History Last Taken Unknown] amlodipine 5 mg tablet 5 mg PO DAILY 30 days #30 tabs 06/19/23 [Rx Last Taken Unknown] aspirin 81 mg chewable tablet 81 mg PO BREAKFAST #30 tabs 06/19/23 [Rx Last Taken Unknown] atorvastatin 40 mg tablet 20 mg (1/2 x 40 mg) PO QHS 30 days #15 tabs 06/19/23 [Rx Last Taken Unknown] metoprolol succinate 50 mg tablet,extended release 24 hr 50 mg PO DAILY 30 days #30 tabs 06/19/23 [Rx Last Taken Unknown] Allergy/AdvReac Type Severity Reaction Status Date / Time latex Allergy Rash Verified 10/31/23 16:07 Family History (Updated 10/31/23 @ 19:[address] Zan Aguirre MD) Other Cancer Heart disease Surgical History History of eye surgery Social History housing: house Smoking Status: Former smoker ROS Constitutional Constitutional: Denies chills, fatigue, fever(s) or malaise Eyes Eyes: Denies blurry vision ENT HEENT: Denies headache(s) or nasal discharge Cardiovascular Cardiovascular: Denies chest pain, dyspnea on exertion or syncope Respiratory/Chest Respiratory/Chest: Denies cough, shortness of breath at rest or shortness of breath with exertion Gastrointestinal Gastrointestinal: Denies constipation, diarrhea, nausea or vomiting Genitourinary Genitourinary: Denies dysuria Musculoskeletal Musculoskeletal: Reports joint pain Neurologic Neurologic: Denies focal weakness, numbness or tremor(s) Psychiatric Psychiatric: Denies anxiety or depression Vital Signs Vital Signs Vital Signs: 10/31/23 16:07 10/31/23 19:16 Temperature 98.3 F Temperature Source Temporal Pulse Rate 72 78 Respiratory Rate 16 16 Blood Pressure 187/72 H 143/64 H Blood Pressure Mean 110 90 Pulse Ox 97 99 Oxygen Delivery Method Room Air Room Air Physical Exam Narrative General: Alert, Oriented x3, Cooperative, No apparent distress HEENT: Atraumatic, PERRLA, EOMI, Normocephalic Oral: Moist Mucosa Neck: Supple, No JVD Lungs: Diminished, Normal air movement, No rhonchi, No wheeze, No rales Cardiovascular: Regular rate, Regular Rhythm, Normal S1, Normal S2, HESHAM Abdomen: Soft, Non Tender, Non-Distended, No Hepato-splenomegaly Extremities: No edema, Capillary Refill Less than 3 Seconds Skin: No rashes, No breakdown Musculoskeletal: Mild tenderness to palpation over pubis Neurological: No focal neurological deficits, Motor Exam 5/5 strength throughout, limited by pain, Sensory exam intact to light touch and pain Psych/Mental Status: Normal Affect, Appropriate Results Imaging Radiology Impression Hip/Pelvis X-Ray 10/31/23 16:50 IMPRESSION: Acute mildly displaced fractures of the left superior and inferior pubic rami.. Cannot definitively exclude minimally impacted fracture of the left femoral neck. CT recommended for further evaluation Electronically Signed: Harvey Richter MD at 17:26 EDT , Lower Extremity CT 10/31/23 18:18 IMPRESSION: Acute fractures of the left inferior and superior pubis with swelling of the obturator internus and hamstrings insertion No evidence for acute hip fracture or dislocation Electronically Signed: Harvey Richter MD at 18:50 EDT Reading Location ID and State: [place] / [place] Tel [phone], Service support , Assessment & Plan Assessment/Plan (1) Closed fracture of left superior pubic ramus: (2) Closed fracture of left inferior pubic ramus: PLAN: Plan 1. Mechanical fall with mildly displaced pubic rami fracture on the left/inability to complete ADLs ? Continue with pain management ? CT scan was negative for femur fracture ? PT/OT ? Case management consult for discharge planning as she currently lives in assisted living 2. Essential HTN/HLD/mild to moderate aortic stenosis with pulmonary hypertension/CAD ? Previous echo on 06/18/2023 with an EF of 60% and a mean aortic valve gradient of 23 mmHg with a PASP of 50 mmHg ? Can resume her home blood pressure medications once verified ? Continue with her Lipitor when verified ? Will obtain baseline labs this evening while in the ER ? Will monitor make adjustments as necessary As she did have a heart cath on 06/18/2023 which showed moderate disease through all 3 main vessels medical management at that time was recommended 3. Hypothyroidism ? Stable?continue with Synthroid when verified 4. Anxiety/depression ? Stable ? Continue with her home medications when verified DVT: Lovenox Charges/Coding Visit Charges Inpatient E&M: 37858 Init Hosp L2
[2023-10-31 19:49] VITALS: BP 126/78; PULSE 78; RESP 16; TEMP 36.4; O2SAT 99
[2023-10-31 20:40] VITALS: BMI 30.2
[2023-10-31 20:44] VITALS: BP 150/70; PULSE 79; RESP 17; TEMP 36.7; O2SAT 94
[2023-10-31 21:14] LABS: Absolute Lymphocyte Count 1.78 X10^3/uL (0.83-4.51); Absolute Neutrophil Count 9.2 X10^3/uL (2.0-7.7); Basophil# 0.05 X10^3/uL; Basophil% 0.4 % (0-1); Eosinophil# 0.13 X10^3/uL; Eosinophils% 1.1 % (0-5); Hematocrit 33.5 % (37-47); Hemoglobin 10.7 g/dL (12.0-15.0); Lymphocyte # 1.78 X10^3/ul (0.83-4.51); Lymphocyte % 14.7 % (19-41); Mean Corp Hgb Conc 31.9 g/dL (32-36); Mean Corpuscular Hgb 30.1 pg (27.0-32.0); Mean Corpuscular Volume 94.1 fL (81-99); Mean Platelet Vol. 10.4 fl (6.2-12.0); Monocyte% 7.4 % (0-10); NRBC Flagged by Analyzer 0 % (0-5); Neutrophil # 9.15 X10^3/uL (2.7-7.7); Neutrophil % 75.7 % (47-70); Platelet Count 212 K/mm3 (150-450); RBC Distribution Width CV 14.1 % (11.6-14.6); RBC Distribution Width SD 48.8 fl (35.1-43.9); Red Blood Count 3.56 M/mm3 (4.2-5.4); White Blood Count 12.1 K/mm3 (4.4-11.0)
[2023-10-31 21:27] LABS: Anion Gap 5 (5-15); BUN 24 mg/dL (7-18); Calcium,Total 8.6 mg/dL (8.5-10.1); Chloride 106 mmol/L (98-107); EST Glomerular Filtration Rate 45 mL/min (>60); Est Glom Filt Rate - Afr Amer 54 mL/min (>60); Estimated Creatinine Clearance 32.48 ml/min; Glucose 188 mg/dL (74-106); Sodium Level 137 mmol/L (136-145)
[2023-10-31] MEDS: Acetaminophen 500 MG Tablet 1000 MG PO (21:40)
[2023-11-01 02:44] VITALS: BP 151/63; PULSE 66; RESP 16; TEMP 36.7; O2SAT 94
[2023-11-01] MEDS: Acetaminophen 500 MG Tablet 1000 MG PO ×3 (06:24→22:17)
[2023-11-01 07:36] LABS: Absolute Lymphocyte Count 1.66 X10^3/uL (0.83-4.51); Absolute Neutrophil Count 5.2 X10^3/uL (2.0-7.7); Basophil# 0.04 X10^3/uL; Basophil% 0.5 % (0-1); Eosinophil# 0.21 X10^3/uL; Eosinophils% 2.7 % (0-5); Hematocrit 32.6 % (37-47); Hemoglobin 10.5 g/dL (12.0-15.0); Lymphocyte # 1.66 X10^3/ul (0.83-4.51); Mean Corp Hgb Conc 32.2 g/dL (32-36); Mean Corpuscular Hgb 30.3 pg (27.0-32.0); Mean Corpuscular Volume 93.9 fL (81-99); Mean Platelet Vol. 10.9 fl (6.2-12.0); Monocyte# 0.73 X10^3/uL; Monocyte% 9.2 % (0-10); NRBC Flagged by Analyzer 0 % (0-5); Neutrophil # 5.21 X10^3/uL (2.7-7.7); Platelet Count 216 K/mm3 (150-450); RBC Distribution Width CV 14.1 % (11.6-14.6); RBC Distribution Width SD 48.4 fl (35.1-43.9); Red Blood Count 3.47 M/mm3 (4.2-5.4); White Blood Count 7.9 K/mm3 (4.4-11.0)
--- NOTE | 2023-11-01 08:13 | PN.HOSP_ITS ---
Reason for Visit Reason for Visit: Pubic pain status post mechanical fall Subjective Subjective Patient is an 88-year-old white female who lives at assisted living at baseline who presented to emergency department at [facility] on 10/31/2023 after suffering a mechanical fall. She reported she was trying to sit on the edge of the bed when she lost her balance and slid to the ground. Following this she developed some pubic pain and had difficulty ambulating because of the pain. For this she presented to emergency department was found to have a superior and inferior pubic ramus fracture that were mildly displaced. Plain films also were questioning whether or not she had a possible femoral neck fracture however CT scan was obtained and it was negative for any femoral fracture. In the emergency department they attempted to ambulate her to get her home however she was not able to bear weight well and was admitted for pain management, therapy service evaluation and probable discharge to intermediate facility or rehab in the short-term until she is able to be more independent. Vital signs on presentation showed a temperature of 98.3, heart rate was 72, respiratory rate 16, blood pressure was 187/72 and pulse ox was 97% on room air. Repeat blood pressure had come down after her pain was better managed to 143/64. Her CBC showed a mild leukocytosis with a white count of 12.1 and a chronic anemia that was stable at 10.7. Her chemistry panel showed normal electrolytes, slightly elevated BUN and serum creatinine 24 and 1.2 however this appears close to her baseline. Her blood glucose was 188 at that time. Objective Data Objective Data Vital Signs: Vital Signs Temp Pulse Resp BP Pulse Ox O2 Del Method 98.1 F 66 16 151/63 H 94 Room Air 11/01/23 02:44 11/01/23 02:44 11/01/23 02:44 11/01/23 02:44 11/01/23 02:44 11/01/23 02:44 Oxygen Delivery Method Room Air Weight: 79.8 kg Body Mass Index (BMI) 30.2 Intake & Output: Intake and Output for Last 24 Hours 10/30/23 10/31/23 11/01/23 23:59 23:59 23:59 Output Total 250 / 250 Balance -250 / -250 Lab / Micro Data 11/01/23 06:44 10/31/23 21:00 Labs: Laboratory Results - last 24 hr 10/31/23 21:00: WBC 12.1 H, RBC 3.56 L, Hgb 10.7 L, Hct 33.5 L, MCV 94.1, MCH 30.1, MCHC 31.9 L, RDW Std Deviation 48.8 H, RDW Coeff of Saeid 14.1, Plt Count 212, MPV 10.4, Immature Gran % (Auto) 0.700, Neut % (Auto) 75.7 H, Lymph % (Auto) 14.7 L, [place] % (Auto) 7.4, Eos % (Auto) 1.1, Baso % (Auto) 0.4, Absolute Neuts (auto) 9.2 H, Absolute Lymphs (auto) 1.78, Nucleated RBC % 0, Sodium 137, Potassium 4.0, Chloride 106, Carbon Dioxide 26.0, Anion Gap 5, BUN 24 H, Creatinine 1.20 H, Estim Creat Clear Calc 32.48, Est GFR (MDRD) Af Amer 54 L, Est GFR (MDRD) Non-Af 45 L, BUN/Creatinine Ratio 20.0, Glucose 188 H, Calcium 8.6 11/01/23 06:44: WBC 7.9, RBC 3.47 L, Hgb 10.5 L, Hct 32.6 L, MCV 93.9, MCH 30.3, MCHC 32.2, RDW Std Deviation 48.4 H, RDW Coeff of Saeid 14.1, Plt Count 216, MPV 10.9, Immature Gran % (Auto) 0.600, Neut % (Auto) 66.0, Lymph % (Auto) 21.0, [place] % (Auto) 9.2, Eos % (Auto) 2.7, Baso % (Auto) 0.5, Absolute Neuts (auto) 5.2, Absolute Lymphs (auto) 1.66, Nucleated RBC % 0 Radiography Diagnostic Testing: Radiology Impression Hip/Pelvis X-Ray 10/31/23 16:50 IMPRESSION: Acute mildly displaced fractures of the left superior and inferior pubic rami.. Cannot definitively exclude minimally impacted fracture of the left femoral neck. CT recommended for further evaluation Electronically Signed: Harvey Richter MD at 17:26 EDT , Lower Extremity CT 10/31/23 18:18 IMPRESSION: Acute fractures of the left inferior and superior pubis with swelling of the obturator internus and hamstrings insertion No evidence for acute hip fracture or dislocation Electronically Signed: Harvey Richter MD at 18:50 EDT Reading Location ID and State: [facility] / [place] Tel , Service support , Assessment & Plan Assessment/Plan (1) Hyperglycemia: (2) Fall: (3) Closed fracture of left superior pubic ramus: (4) Closed fracture of left inferior pubic ramus: PLAN: Plan Left superior and inferior pubic ramus fracture -Nonoperative management -Weightbearing as tolerated -Continue scheduled acetaminophen 1000 mg every 8 hours -Continue as needed oxycodone 5 mg every 4 hours as needed -Avoid NSAIDs due to CKD and age -Check vitamin D level -PT/OT consultation -Case management/social work consultation as patient will likely need intermediate facility versus rehab at discharge -Lives in assisted living at baseline -Patient has [employer] Medicare and will need a pre-CERT if excepted for discharge to facility Mechanical fall -PT/OT consultation Hyperglycemia -No noted history of DM-2 -Check hemoglobin A1c -May be stress response with fall CAD/HTN/HPL -Cardiac catheterization was done in late 2022 and identified significant coronary artery disease however medical management was recommended -Continue aspirin 81 mg daily -Continue home amlodipine -Continue home atorvastatin -Continue home losartan -Continue home metoprolol Mild to moderate aortic valve stenosis -Noted on last echocardiogram on 06/18/2023-EF was normal at 60% -Continue to monitor clinically Hypothyroidism -Continue home levothyroxine CKD stage IIIb -Baseline serum creatinine appears to run between 1 and 1.25 -Serum creatinine on presentation was 1.2 -Avoid nephrotoxins -Continue to monitor Obesity -BMI is 30.2 Recommend weight loss -Complicates treatment, prognosis, outcomes DVT prophylaxis -Continue enoxaparin daily CODE STATUS -Full code as was verified on admission Charges/Coding Visit Charges Inpatient E&M: 71671 Subs Hosp L2
[2023-11-01 08:27] LABS: Anion Gap 4 (5-15); BUN 20 mg/dL (7-18); BUN/Creat Ratio 20.7 RATIO (10-20); Calcium,Total 9.1 mg/dL (8.5-10.1); Chloride 106 mmol/L (98-107); Creatinine, Serum 0.96 mg/dL (0.55-1.02); EST Glomerular Filtration Rate 58 mL/min (>60); Est Glom Filt Rate - Afr Amer 70 mL/min (>60); Glucose 86 mg/dL (74-106); Potassium 4.1 mmol/L (3.5-5.1); Sodium Level 137 mmol/L (136-145)
[2023-11-01 08:45] LABS: Vitamin D,25 Hydroxy 44.5 ng/mL
[2023-11-01 09:00] VITALS: BP 151/46; PULSE 74; RESP 18; TEMP 36.6; O2SAT 97
[2023-11-01] MEDS: Senna Tablet 1 TABLET PO ×2 (10:45→22:17)
[2023-11-01] MEDS: Losartan Potassium 100 MG Tablet PO (10:46)
[2023-11-01] MEDS: Cholecalciferol (VIT D3) 25 MCG TABLET (1,000 UNITS) PO (10:46)
[2023-11-01] MEDS: Cyanocobalamin 500 MCG Tablet 1000 MCG PO (10:46)
[2023-11-01] MEDS: amLODIPine 5 MG Tablet PO (10:46)
[2023-11-01] MEDS: Citalopram 10 MG Tablet PO (10:46)
[2023-11-01] MEDS: Enoxaparin 40 MG/0.4 ML Syringe SC (10:48)
--- NOTE | 2023-11-01 11:55 | CASEMGMT ---
Social Work Pt previously lived at [facility] and would like to return there if possible. This worker sent clinical information and PT/OT evals to [place] through [facility] to [facility] and determine if they are able to accept pt at current status. This worker telephoned [place] and spoke with Cedrick who stated he will have the DON review information and will return call to [facility]. Allyson GUNN
[2023-11-01 12:44] LABS: Hemoglobin A1c 5.5 % (3.8-5.6)
--- NOTE | 2023-11-01 13:07 | CASEMGMT ---
Addendum entered by Joanne Birch 11/01/23 15:05: Social Work [facility] has no beds. SW let pt know, called daughter to let her know. She is agreeable to referrals to [facility] and [facility]. Referrals sent via [employer]. SW will continue to follow. TAURUS Martinez Addendum entered by Joanne Birch 11/01/23 13:51: Social Work Pt's daughters and son in law are here. SW spoke w/them in the room in regard to discharge plan. SW explained we are waiting to hear back from [facility] if they can take pt back, but if they cannot SW inquired about rehab options. Daughters do seem to be in favor of pt going to rehab rather than back to [facility], so she can get more therapy. They may be agreeable to pt returning to [facility] also however, and getting therapy there. SW will let them know as soon as SW knows if [facility] can take pt. [facility] would be the facility of choice should rehab be needed. SW explained the insurance process, and that we will send the referral today. Pt and family state understanding. SW sent the referral via [facility]port to [facility], will await a response. SW also still waiting to hear back from [facility]. TAURUS Martinez Original Note: Social Work SW spoke w/pt in regard to discharge plan. Pt is from [facility], and she would like to return there if at all possible. SAM explained we will send updates to [facility] and ask if they can take pt back. Pt states she normally gets around with a walker, but does her own dressing and bathing. SW asked if her daughter Jojo helps her w/making medical decisions, she states she does. There is a general POA form on the chart that included medical provision, Jojo is the alternate to pt's who has . Allyson Nicole, SAM sent the updates to [facility] via [employer], called and is waiting for a call back. SAM also called [facility] and left a message. SAM will continue to follow. TAURUS Martinez
--- NOTE | 2023-11-01 16:00 | CASEMGMT ---
Social Work VM received from [facility] that they can accept pt back with home health services if pt and family choose this but are also understanding pt may need short term skilled stay. SAM will follow up for dc planning. LUIS A Ayala
[2023-11-01 16:32] VITALS: BP 157/57; PULSE 75; RESP 18; TEMP 37; O2SAT 98
[2023-11-01 21:00] VITALS: BP 130/43; PULSE 78; RESP 16; TEMP 36.9; O2SAT 93
[2023-11-01 22:17] VITALS: PULSE 80
[2023-11-01] MEDS: Atorvastatin Calcium 20 MG Tablet PO (22:17)
[2023-11-01] MEDS: Metoprolol(XL)Succ 50 MG Tablet PO (22:17)
[2023-11-02 05:00] VITALS: BP 149/62; PULSE 74; RESP 18; TEMP 36.6; O2SAT 97
[2023-11-02] MEDS: Acetaminophen 500 MG Tablet 1000 MG PO ×2 (05:28→13:36)
[2023-11-02] MEDS: Levothyroxine 150 MCG Tablet PO (05:28)
[2023-11-02] MEDS: Senna Tablet 1 TABLET PO (08:10)
[2023-11-02] MEDS: Citalopram 10 MG Tablet PO (08:10)
[2023-11-02] MEDS: Cyanocobalamin 500 MCG Tablet 1000 MCG PO (08:10)
[2023-11-02] MEDS: amLODIPine 5 MG Tablet PO (08:10)
[2023-11-02] MEDS: Losartan Potassium 100 MG Tablet PO (08:10)
[2023-11-02] MEDS: Aspirin 81 MG TAB.CHEW PO (08:10)
[2023-11-02] MEDS: Cholecalciferol (VIT D3) 25 MCG TABLET (1,000 UNITS) PO (08:11)
[2023-11-02] MEDS: Enoxaparin 40 MG/0.4 ML Syringe SC (08:11)
[2023-11-02 09:13] VITALS: BP 161/93; PULSE 73; RESP 18; TEMP 36.6; O2SAT 98
--- NOTE | 2023-11-02 09:50 | CASEMGMT ---
Social Work SW met with patient and her daughter to discuss DC plans and updated that [facility] has replied that they can take patient back with home health and both [facility] and [facility] can accept pt for short term rehab. Daughter stated she went to [facility] and met with DON and discussed options. Kirsten told daughter that they can provide extra care and provide therapy 3 times a week and pt can get [facility] therapy 3 times a week. Pt was agreeable and stated she would prefer to return to [facility] with these options. Dtr felt pt return to [facility] would be the best for pt so she can be around her friends and feels comfortable with care that can be provided. Pt stated she would like [facility] and declined offer for list of providers. SAM will continue to assist with DC planning. Allyson GUNN
--- NOTE | 2023-11-02 10:04 | CASEMGMT ---
Addendum entered by Alisa Augirre 11/02/23 13:57: Krystal @ [facility] made that pt's daughter reports Dr Napier's office states C can see pt as early as Sunday as long as pt agreeable to going to Dr Napier's appt on . She states she will f/u with dtr/pt to schedule SOC Addendum entered by Ailsa Aguirre 11/02/23 12:58: Dr Napier is requiring an office appt before he will follow for [facility] orders. Pt and daughter aware. Daughter called Dr Napier's office and scheduled an appt w/him @ 2:40 PM. She states she is going to call his office Sunday AM to see if pt can be seen earlier and she is aware to let [facility] know if the appt is changed. Per SAM Lawrence, [facility] has [facility] and can provide transportation to Dr Napier's appt. Pt and dtr made aware and they state will coordinate transportation to appt w/[place]. Dtr states they have a W/C in storage available for pt to use. SAM Lawrence, will talk w/pt and dtr about transportation home. Pt and dtr deny having other discharge needs. Original Note: TAYLOR SNOW NOTE: Per SAM Valadez, pt to discharge back to [facility] and pt and family would like [facility] for therapy. Call placed to Krystal @ [facility] and referral made. Krystal will check w/PCP, Dr Napier, to see if he will require office visit before following for [facility]. Awaiting return call. Karmen CHESTER RN, CM
--- NOTE | 2023-11-02 10:14 | CASEMGMT ---
Addendum entered by Melinda Martin 11/02/23 13:15: SW spoke with pt and daughter and they are requesting transportation be set up for pt. Transportation arranged with [facility] for 2:30 pickle water pump operator via wheelchair van. Pt, pt's dgtFlakita and pt nurse notified of discharge time. Disposition: Return to [facility] LUIS A Ayala Original Note: Social Work Pt and family choosing to return to [facility] with home health. RNCM updated to make referral for home health. Physician notified and pt will be ready for dc today. [place], [facility] and [facility] notified to cancel referrals. Phone call to [facility] and spoke with pt nurse Rosaura and updated that pt would be returning today. Flakita agreeable. Plan: Return to [facility], when medically ready LUIS A Ayala
[2023-11-02 10:39] VITALS: BP 148/59; PULSE 76; RESP 18; TEMP 36.9; O2SAT 98
--- NOTE | 2023-11-02 11:08 | PCM.DC.SUM ---
Providers Date of Admission: 10/31/23 Date of Discharge: 11/02/23 Primary Care Physician: Dr. Beck Napier MD Reason For Visit: PUBIC RAMI FRACTURE WITH INABILITY FOR ADL Diagnosis Discharge Diagnosis (1) Hyperglycemia: Status: Acute Code(s): R73.9 - Hyperglycemia, unspecified (2) Fall: Status: Acute Code(s): W19.XXXA - Unspecified fall, initial encounter (3) Closed fracture of left superior pubic ramus: Status: Acute Code(s): S32.512A - Fracture of superior rim of left pubis, initial encounter for closed fracture (4) Closed fracture of left inferior pubic ramus: Status: Acute Code(s): S32.592A - Other specified fracture of left pubis, initial encounter for closed fracture Plan Left superior and inferior pubic ramus fracture -Nonoperative management -Weightbearing as tolerated -Continue scheduled acetaminophen 1000 mg every 8 hours -Continue as needed oxycodone 5 mg every 4 hours as needed -Avoid NSAIDs due to CKD and age -Check vitamin D level -PT/OT consultation -Case management/social work consultation as patient will likely need halfway facility versus rehab at discharge -Lives in assisted living at baseline -Patient has [employer] Medicare and will need a pre-CERT if excepted for discharge to facility Mechanical fall -PT/OT consultation Hyperglycemia -No noted history of DM-2 -Check hemoglobin A1c -May be stress response with fall CAD/HTN/HPL -Cardiac catheterization was done in late 2022 and identified significant coronary artery disease however medical management was recommended -Continue aspirin 81 mg daily -Continue home amlodipine -Continue home atorvastatin -Continue home losartan -Continue home metoprolol Mild to moderate aortic valve stenosis -Noted on last echocardiogram on 06/18/2023-EF was normal at 60% -Continue to monitor clinically Hypothyroidism -Continue home levothyroxine CKD stage IIIb -Baseline serum creatinine appears to run between 1 and 1.25 -Serum creatinine on presentation was 1.2 -Avoid nephrotoxins -Continue to monitor Obesity -BMI is 30.2 Recommend weight loss -Complicates treatment, prognosis, outcomes DVT prophylaxis -Continue enoxaparin daily CODE STATUS -Full code as was verified on admission Medications at Discharge Home Medications cyanocobalamin (vitamin B-12) 500 mcg tablet 1,000 mcg PO DAILY@0800 suppliment 01/05/18 losartan 100 mg tablet 100 mg PO DAILY blood pressure 01/05/18 cholecalciferol (vitamin D3) 25 mcg (1,000 unit) capsule (Vitamin D3) 1,000 unit PO DAILY suppliment 06/17/23 citalopram 10 mg tablet 10 mg PO DAILY mood 06/17/23 levothyroxine 150 mcg tablet 150 mcg PO DAILY thyroid 06/17/23 amlodipine 5 mg tablet 5 mg PO DAILY bp 30 days #30 tabs 06/19/23 aspirin 81 mg chewable tablet 81 mg PO BREAKFAST blood thinner #30 tabs 06/19/23 atorvastatin 40 mg tablet 20 mg (1/2 x 40 mg) PO QHS hld 30 days #15 tabs 06/19/23 metoprolol succinate 50 mg tablet,extended release 24 hr 50 mg PO QHS heart 10/31/23 acetaminophen 500 mg tablet 1,000 mg (2 x 500 mg) PO Q8 #0 tabs 11/02/23 oxycodone 5 mg tablet 5 mg PO Q6H PRN PRN Pain Score 4-10 1 week #28 tabs 11/02/23 sennosides 8.6 mg tablet (senna) 8.6 mg PO BID #14 tabs 11/02/23 Hospital Course Operations None Procedures - (Hip and pelvic x-rays/CT of the lower extremity) Summary of Care Provided Minutes Spent on Discharge: 30 Hospital Course: Patient is an 88-year-old white female who lives at assisted living at baseline who presented to emergency department at [facility] on 10/31/2023 after suffering a mechanical fall. She reported she was trying to sit on the edge of the bed when she lost her balance and slid to the ground. Following this she developed some pubic pain and had difficulty ambulating because of the pain. For this she presented to emergency department was found to have a superior and inferior pubic ramus fracture that were mildly displaced. Plain films also were questioning whether or not she had a possible femoral neck fracture however CT scan was obtained and it was negative for any femoral fracture. In the emergency department they attempted to ambulate her to get her home however she was not able to bear weight well and was admitted for pain management, therapy service evaluation and probable discharge to halfway facility or rehab in the short-term until she is able to be more independent. Vital signs on presentation showed a temperature of 98.3, heart rate was 72, respiratory rate 16, blood pressure was 187/72 and pulse ox was 97% on room air. Repeat blood pressure had come down after her pain was better managed to 143/64. Her CBC showed a mild leukocytosis with a white count of 12.1 and a chronic anemia that was stable at 10.7. Her chemistry panel showed normal electrolytes, slightly elevated BUN and serum creatinine 24 and 1.2 however this appears close to her baseline. Her blood glucose was 188 at that time. With her blood glucose elevation on presentation hemoglobin A1c was assessed and found to be 5.5. I suspect the elevation was a stress response related to the acute issues. Her blood pressure improved once the acute phase of her hospitalization was over. She was evaluated by physical and Occupational Therapy. Initially with therapy she did need quite a bit of help however she did better today and family would like to have her go back to assisted living and have home health care rather than being placed in a skilled facility for discharge. Her assisted living facility was able to take her back and facilitate home health. The plan was for her to get home health 3 times a week and she will receive extra care. Friends will also be around there and patient and family felt comfortable that the care she needed will be able to be provided there. She was able to be discharged back to her assisted living environment on 11/02/2023. I did suggest she take Tylenol scheduled 1000 mg 3 times daily for about 2 weeks and then take it as needed following and we wrote a prescription for oxycodone 5 mg every 6 hours as needed for pain. She was also placed on Dulcolax to utilize while she is on pain medicine to avoid constipation. I have asked her to follow-up with her primary care physician within the next 2 weeks. Discharge diagnoses: Superior and inferior left pubic ramus fracture Mechanical fall Hyperglycemia-hemoglobin A1c 5.5 CAD Hypertension Hyperlipidemia Mild to moderate aortic valve stenosis Hypothyroidism CKD stage IIIb Obesity Physical Exam Narrative Patient states she has no pain when she is not moving around but does complain of Pain when she gets up to move. She overall has been doing fairly well with therapy and does not need to go anywhere for skilled and the plan is to go home with home health care back to her assisted living environment. Const alert, oriented x3, no apparent distress, no limitations and well nourished Constitutional Narrative: Obese, elderly, white female, sitting up in bed eating breakfast and watching television, appears comfortable, nontoxic General Appearance: cooperative, comfortable, well kempt and well developed Orientation / Consciousness: awake, oriented to person, oriented to place and oriented to time Exam Limitations: no limitations Nutritional Appearance: obese HEENT normocephalic, head/scalp atraumatic, hearing grossly normal bilaterally and moist oral mucous membranes HEENT Narrative: Mallampati 3, no thrush Resp normal respiratory effort, no retractions, no use of accessory muscles and clear to auscultation bilaterally Auscultation: Negative for rales, rhonchi or wheezes Cardio regular rate, regular rhythm, S1 normal heart sound, S2 normal heart sound, no rub, no gallops and no clicks; Negative for no murmurs Cardio Narrative: 4 out of 6 systolic murmur loudest at right upper sternal border, radiates to carotids bilaterally GI normal to inspection, nondistended, normoactive bowel sounds and soft to palpation Extremity no clubbing, cyanosis or edema Extremity Narrative: Pedal pulses are 2+ bilaterally at dorsalis pedis Neuro oriented x3, moves all extremities and no focal motor deficits Speech: speech normal Psych affect normal Psych Narrative: Very pleasant, interacts appropriately Weight / BMI Weight Weight: 79.8 kg Body Mass Index (BMI) 30.2 ABG / Lab / Microbiology Data 11/01/23 06:44 11/01/23 06:44 Laboratory: Laboratory Results - last 24 hr 11/01/23 06:44: Hemoglobin A1c 5.5 D/C Instructions Discharge Diet: Low fat / Low cholesterol Discharge Activity: Return to Normal Activity, May Not Drive (Until you are not having any pain) and Use Walker Meaningful Use Info Meaningful Use Diagnoses (Choose all that apply): None applicable Discharge Plan Admission Admit Date/Time: 10/31/23 19:43 Primary Reason for Your Visit: Fall Attending Provider: Luna Crocker Primary Care Provider: Beck Napier Chi Consulting Providers: Zan Aguirre Discharge Orders/Prescriptions Prescriptions: New acetaminophen 500 mg Tablet 1,000 mg PO Q8 Qty: 0 0RF Rx Instructions: Only take it scheduled for about 2 weeks and then take it as needed oxycodone 5 mg Tablet 5 mg PO Q6H PRN PRN (Reason: Pain Score 4-10) 7 Days Qty: 28 0RF sennosides [senna] 8.6 mg Tablet 8.6 mg PO BID Qty: 14 0RF Rx Instructions: Use this while you are taking any pain medication so you do not end up constipated Continued cyanocobalamin (vitamin B-12) 500 MCG tablet 1,000 mcg PO DAILY@0800 losartan 100 MG tablet 100 mg PO DAILY levothyroxine 150 mcg tablet 150 mcg PO DAILY Patient Comments: TAKE 1 TABLET BY MOUTH EVERY DAY cholecalciferol (vitamin D3) [Vitamin D3] 25 mcg (1,000 unit) capsule 1,000 unit PO DAILY citalopram 10 mg tablet 10 mg PO DAILY Patient Comments: TAKE 1 TABLET BY MOUTH ONCE DAILY atorvastatin 40 mg Tablet 20 mg PO QHS 30 Days Qty: 15 0RF amlodipine 5 mg Tablet 5 mg PO DAILY 30 Days Qty: 30 0RF aspirin 81 mg Tablet,Chewable 81 mg PO BREAKFAST Qty: 30 0RF metoprolol succinate 50 mg Tablet Extended Release 24 Hr 50 mg PO QHS Referrals / Follow Up: Beck Napier Chi, MD [Primary Care Provider] - Within 2 Weeks Disposition Disposition (needs filled in before D/C Order can be placed): Assisted Living Charges/Coding Visit Charges Inpatient E&M: 87728 Disch Hosp
--- NOTE | 2023-11-02 13:55 | CASEMGMT ---
Social Work Pt's dgt states she spoke with Dr. Napier's office who state that as long as pt keeps scheduled appointment on , Dr. Napier will sign for home health to start on Sunday. RNCM bud. LUIS A Ayala
[2023-11-02 14:35] VITALS: BP 136/71; PULSE 70; RESP 18; TEMP 36.8; O2SAT 98
== END 2023-11-02 14:52 | disposition home or self-care (01) | DRG 536 ==
LOC: ED 18:17 → MS3 22:35
PROVIDERS: Admitting Provider Family Medicine; Emergency Provider Emergency Medicine; PCP Family Medicine Geriatric Medicine; Visit Provider Internal Medicine
DX: S32.512A Fracture of superior rim of left pubis, initial encounter for closed fracture (principal); I27.20 Pulmonary hypertension, unspecified; N18.32 Chronic kidney disease, stage 3b; S32.592A Other specified fracture of left pubis, initial encounter for closed fracture; E03.9 Hypothyroidism, unspecified; I35.0 Nonrheumatic aortic (valve) stenosis; I12.9 Hypertensive chronic kidney disease with stage 1 through stage 4 chronic kidney disease, or unspecified chronic kidney disease; D64.9 Anemia, unspecified; F32.A Depression, unspecified; I25.10 Atherosclerotic heart disease of native coronary artery without angina pectoris; E78.5 Hyperlipidemia, unspecified; W06.XXXA Fall from bed, initial encounter; F41.9 Anxiety disorder, unspecified; E66.9 Obesity, unspecified; Z87.891 Personal history of nicotine dependence; Z79.01 Long term (current) use of anticoagulants; R73.9 Hyperglycemia, unspecified; Z79.82 Long term (current) use of aspirin; Z68.30 Body mass index [BMI] 30.0-30.9, adult; Y92.092 Bedroom in other non-institutional residence as the place of occurrence of the external cause
CPT/HCPCS: 36415; 73502; 73700; 80048; 82306; 83036; 85025; 97110; 97116; 97162; 97166; 99284

== ENCOUNTER → 2023-11-14 | Outpatient (CLI) | payer MEDICARE, SELFPAY ==
[2023-11-14 16:48] LABS: Absolute Lymphocyte Count 1.55 X10^3/uL (0.83-4.51); Absolute Neutrophil Count 6.6 X10^3/uL (2.0-7.7); Basophil# 0.05 X10^3/uL; Basophil% 0.5 % (0-1); Eosinophil# 0.18 X10^3/uL; Hematocrit 35.8 % (37-47); Hemoglobin 11.4 g/dL (12.0-15.0); Lymphocyte # 1.55 X10^3/ul (0.83-4.51); Lymphocyte % 16.9 % (19-41); Mean Corp Hgb Conc 31.8 g/dL (32-36); Mean Corpuscular Hgb 29.9 pg (27.0-32.0); Mean Platelet Vol. 10.5 fl (6.2-12.0); Monocyte% 8.7 % (0-10); NRBC Flagged by Analyzer 0 % (0-5); Neutrophil # 6.56 X10^3/uL (2.7-7.7); Neutrophil % 71.4 % (47-70); Platelet Count 356 K/mm3 (150-450); RBC Distribution Width CV 14.6 % (11.6-14.6); RBC Distribution Width SD 50.1 fl (35.1-43.9); Red Blood Count 3.81 M/mm3 (4.2-5.4); White Blood Count 9.2 K/mm3 (4.4-11.0)
[2023-11-14 17:15] LABS: Vitamin D,25 Hydroxy 45.8 ng/mL
[2023-11-14 17:23] LABS: ALB/GLOB Ratio 0.9 RATIO (0.9-2.4); AST(SGOT) 15 U/L (15-37); Alanine Aminotransfer ALT/SGPT 23 U/L (13-56); Albumin, Serum 3.5 g/dL (3.2-5.0); Alkaline Phosphatase 171 U/L (45-117); Anion Gap 6 (5-15); BUN 26 mg/dL (7-18); BUN/Creat Ratio 23.4 RATIO (10-20); Calcium,Total 9.1 mg/dL (8.5-10.1); Chloride 104 mmol/L (98-107); Cholesterol 120 mg/dL (200); Creatinine, Serum 1.11 mg/dL (0.55-1.02); EST Glomerular Filtration Rate 49 mL/min (>60); Est Glom Filt Rate - Afr Amer 59 mL/min (>60); Globulin 3.8 g/dL (2.2-4.2); Glucose 110 mg/dL (74-106); High Density Lipoprotein 46 mg/dL; Potassium 4.5 mmol/L (3.5-5.1); Protein, Total 7.3 g/dL (6.4-8.2); Sodium Level 135 mmol/L (136-145); Triglycerides 75 mg/dL; Very Low Density Lipoprotein 15 mg/dL (5-40)
== END | disposition home or self-care (01) ==
LOC: POLAB3 14:37
PROVIDERS: PCP Family Medicine Geriatric Medicine; Visit Provider Family Medicine Geriatric Medicine
DX: I10 Essential (primary) hypertension (principal); E55.9 Vitamin D deficiency, unspecified; E78.5 Hyperlipidemia, unspecified
CPT/HCPCS: 36415; 80053; 80061; 82306; 84443; 85025

== ENCOUNTER → 2023-11-20 | Outpatient (CLI) | payer MEDICARE, SELFPAY ==
--- NOTE | 2023-11-20 14:47 | RAD_ITS ---
INDICATION: THORACIC BACK PAIN EXAMINATION/TECHNIQUE: X-RAY - XR Spine Thoracic 2 Views COMPARISON: June 28, 2023 FINDINGS: VERTEBRAE: T6 vertebral body height loss increased from June 28, 2023 without gross cortical disruption, with mild exaggerated kyphosis. No listhesis.. No fracture. No spondylolisthesis. Multilevel endplate osteophyte formation DISCS: Disc spaces are maintained. INCLUDED CHEST/ABDOMEN: Aortic atherosclerosis.. Increased linear atelectasis or scarring left lower lung RAD/Thoracic Spine 3 Views IMPRESSION: T6 vertebral body height loss which is new from June 28, 2023. Interval chronicity is uncertain. CT could further evaluate as indicated. Increased left basilar atelectasis or scarring. Contrast-enhanced chest CT may be beneficial to exclude obstructing hilar lesion. Electronically Signed: Santiago Wilson MD at 17:12 EDT ,
--- NOTE | 2023-11-20 14:50 | RAD_ITS ---
STUDY: X-RAY CHEST REASON FOR EXAM: Female, 88 years old. Chest pain. TECHNIQUE: Frontal and lateral views of the chest. COMPARISON: June 17, 2023 FINDINGS: Hyperinflation unchanged. Linear opacities at both bases compatible with scarring. No focal consolidation. There is no demonstrated pleural abnormality. Stable cardiomegaly. Normal mediastinum and rich. Prominent central pulmonary arteries, unchanged. Aortic tortuosity with calcification unchanged. Thoracic osteopenia with mild diffuse spondylosis. Normal visualized ribs, clavicles, and shoulders. No abnormality of the visualized soft tissue structures of the upper abdomen. RAD/Chest PA and Lateral IMPRESSION: Stable chest with no active or acute cardiopulmonary disease. Electronically Signed: Herberth Tran MD at 9:43 EDT ,
--- NOTE | 2023-11-20 15:05 | RAD_ITS ---
STUDY: X-RAY - LUMBAR SPINE REASON FOR EXAM: Female, 88 years old. Back pain. TECHNIQUE: 2 view(s) of the lumbar spine were obtained. COMPARISON: June 26, 2022 FINDINGS: Stable marked osteopenia. Normal lumbar lordosis. Increase in dextroscoliosis of the upper lumbar spine compared to the prior study. Normal vertebral alignment. Endplate irregularities and concavities compatible with osteoporosis. Slight increased loss of height of the L3 and L5 vertebral bodies. Diffuse intervertebral disc space narrowing with osteophytes most marked at L2-3, L3-4, L4-5 and L5-S1. Stable heavily calcified aorta RAD/Lumbar Spine 2 or 3 Views IMPRESSION: Osteopenia with endplate concavities compatible with osteoporosis, slightly progressed since the prior study. Increase in loss of height of the L3 and L5 vertebral bodies. Diffuse moderate to marked lower lumbosacral spondylosis. Electronically Signed: Herberth Tran MD at 9:42 EDT ,
== END | disposition home or self-care (01) ==
LOC: RAD 14:47
PROVIDERS: PCP Family Medicine Geriatric Medicine; Referring Provider Family Medicine Geriatric Medicine; Visit Provider Family Medicine Geriatric Medicine
DX: M54.6 Pain in thoracic spine (principal); R07.9 Chest pain, unspecified
CPT/HCPCS: 71046; 72072; 72100

== ENCOUNTER → 2023-11-27 | Outpatient (CLI) | payer MEDICARE, SELFPAY ==
[2023-11-27 14:14] LABS: Amphetamine Urine VISTA NEGATIVE (<1000 ng/mL); Barbiturate Urine VISTA NEGATIVE (< 200 ng/mL); Benzodiazepine Urine VISTA NEGATIVE (< 200 ng/mL); Cocaine Urine VISTA NEGATIVE (< 300 ng/mL); Ecstacy Urine VISTA NEGATIVE (< 500 ng/mL); Methadone Urine VISTA NEGATIVE (< 300 ng/mL); PCP Urine VISTA NEGATIVE (< 25 ng/mL); THC Urine VISTA NEGATIVE (< 50 ng/mL); Vista UDS pH Range 6
== END | disposition home or self-care (01) ==
PROVIDERS: PCP Family Medicine Geriatric Medicine; Referring Provider Anesthesiology; Visit Provider Anesthesiology
DX: F11.20 Opioid dependence, uncomplicated (principal)
CPT/HCPCS: 80307

== ENCOUNTER → 2023-12-03 | Outpatient (REF) | payer MEDICARE, SELFPAY ==
[2023-12-04 08:50] LABS: Color, Urine Yellow (Yellow); Glucose, Dipstick Normal (Normal); Ketone-Dipstick Negative (Negative); Leukocyte Esterase-Dipstick 100 /ul (Negative); Nitrite-Dipstick Negative (Negative); Occult Blood-Urine Negative /ul (Negative); Protein-Dipstick 15 mg/dl (Negative); Urine Bilirubin Dipstick Negative (Negative); Urine Clarity Clear (Clear); Urine Urobilinogen Normal (Normal)
== END ==
PROVIDERS: PCP Family Medicine Geriatric Medicine; Visit Provider Family Medicine Geriatric Medicine
DX: R41.82 Altered mental status, unspecified (principal)
CPT/HCPCS: 81002; 87086; 87088

== ENCOUNTER → 2023-12-06 | Outpatient (CLI) | payer MEDICARE, SELFPAY ==
[2023-12-06 12:27] LABS: Absolute Lymphocyte Count 1.03 X10^3/uL (0.83-4.51); Absolute Neutrophil Count 9.4 X10^3/uL (2.0-7.7); Basophil# 0.02 X10^3/uL; Basophil% 0.2 % (0-1); Color, Urine Yellow (Yellow); Eosinophil# 0.02 X10^3/uL; Eosinophils% 0.2 % (0-5); Glucose, Dipstick Normal (Normal); Hematocrit 34.7 % (37-47); Hemoglobin 11.1 g/dL (12.0-15.0); Ketone-Dipstick Negative (Negative); Leukocyte Esterase-Dipstick 25 /ul (Negative); Lymphocyte # 1.03 X10^3/ul (0.83-4.51); Lymphocyte % 9.1 % (19-41); Mean Corpuscular Hgb 29.9 pg (27.0-32.0); Mean Corpuscular Volume 93.5 fL (81-99); Mean Platelet Vol. 9.9 fl (6.2-12.0); NRBC Flagged by Analyzer 0 % (0-5); Neutrophil # 9.39 X10^3/uL (2.7-7.7); Neutrophil % 82.6 % (47-70); Nitrite-Dipstick Negative (Negative); Occult Blood-Urine 10 /ul (Negative); Platelet Count 289 K/mm3 (150-450); Protein-Dipstick 15 mg/dl (Negative); RBC Distribution Width CV 15.7 % (11.6-14.6); RBC Distribution Width SD 54.2 fl (35.1-43.9); Red Blood Count 3.71 M/mm3 (4.2-5.4); Urine Bilirubin Dipstick Negative (Negative); Urine Clarity Clear (Clear); Urine Urobilinogen Normal (Normal); White Blood Count 11.4 K/mm3 (4.4-11.0)
[2023-12-06 12:59] LABS: AST(SGOT) 10 U/L (15-37); Alanine Aminotransfer ALT/SGPT 18 U/L (13-56); Albumin, Serum 3.2 g/dL (3.2-5.0); Alkaline Phosphatase 119 U/L (45-117); Anion Gap 5 (5-15); BUN 35 mg/dL (7-18); BUN/Creat Ratio 27.3 RATIO (10-20); Calcium,Total 8.8 mg/dL (8.5-10.1); Chloride 103 mmol/L (98-107); Creatinine, Serum 1.28 mg/dL (0.55-1.02); EST Glomerular Filtration Rate 42 mL/min (>60); Est Glom Filt Rate - Afr Amer 50 mL/min (>60); Globulin 3.3 g/dL (2.2-4.2); Glucose 107 mg/dL (74-106); Potassium 4.5 mmol/L (3.5-5.1); Protein, Total 6.5 g/dL (6.4-8.2); Sodium Level 134 mmol/L (136-145)
== END | disposition home or self-care (01) ==
LOC: LAB 11:58
PROVIDERS: PCP Family Medicine Geriatric Medicine; Visit Provider Family Medicine Geriatric Medicine
DX: E78.5 Hyperlipidemia, unspecified (principal); N39.0 Urinary tract infection, site not specified
CPT/HCPCS: 36415; 80053; 81002; 85025; 87077; 87086; 87088; 87186

== ENCOUNTER 2023-12-15 17:45 | Emergency (ER) | payer MEDICARE, SELFPAY ==
[2023-12-15 17:49] VITALS: BP 141/53; PULSE 96; RESP 20; TEMP 36.1; O2SAT 91; BMI 30.1
--- NOTE | 2023-12-15 18:24 | EX.ED.DYSGE1 ---
HPI History of Present Illness Chief Complaint: Nausea/Vomiting Informant: patient and family Narrative Narrative: 88-year-old female brought to the emergency room with vomiting. Patient is currently undergoing treatment for UTI as well as left inferior and superior pubic rami fractures. Daughter states over the past almost 2 months it is she fell she has had several different pain medications and has been pain management. Daughter states that she was given a new medication today. Is reported to me that she took buprenorphine. Reportedly this was given at 8:00 this morning. Daughter states that she was told that she had some vomiting and low blood pressure daughter states it seems like her mother is high. She states she has acted like this with a couple different pain medications recently including oxycodone. Patient herself states she is feels okay right now. Daughter states that she is currently taking ciprofloxacin as well as cefdinir for urinary tract infection [facility] Medical History Anemia Fall Atherosclerotic heart disease of [place] coronary artery without angina pectoris Aortic stenosis Syncope Chronic kidney disease Hypothyroidism Depression Hypertension Ear infection Home Medications ?Medication ?Instructions ?Recorded ?Last Taken ?Type cyanocobalamin (vitamin B-12) 500 1,000 mcg PO DAILY@0800 suppliment 01/05/18 Unknown History mcg tablet losartan 100 mg tablet 100 mg PO DAILY blood pressure 01/05/18 Unknown History cholecalciferol (vitamin D3) 25 1,000 unit PO DAILY suppliment 06/17/23 Unknown History mcg (1,000 unit) capsule (Vitamin D3) citalopram 10 mg tablet 10 mg PO DAILY mood 06/17/23 Unknown History levothyroxine 150 mcg tablet 150 mcg PO DAILY thyroid 06/17/23 Unknown History amlodipine 5 mg tablet 5 mg PO DAILY bp 30 days #30 tabs 06/19/23 Unknown Rx aspirin 81 mg chewable tablet 81 mg PO BREAKFAST blood thinner 06/19/23 Unknown Rx #30 tabs metoprolol succinate 50 mg 50 mg PO QHS heart 10/31/23 Unknown History tablet,extended release 24 hr acetaminophen 500 mg tablet 1,000 mg (2 x 500 mg) PO Q8 #0 tabs 11/02/23 Unknown Rx atorvastatin 40 mg tablet 40 mg PO QHS hld 12/15/23 Unknown History buprenorphine HCl 2 mg sublingual 2 mg sublingual X1 12/15/23 Unknown History tablet cefdinir 300 mg capsule 300 mg PO BID 12/15/23 Unknown History ciprofloxacin HCl 250 mg tablet 250 mg PO DAILY 12/15/23 Unknown History Allergy/AdvReac Type Severity Reaction Status Date / Time latex Allergy Rash Verified 12/15/23 17:52 Family History Other Cancer Heart disease Surgical History History of eye surgery Social History housing: house Smoking Status: Former smoker ROS ROS ED Constitutional Constitutional ED: Denies chills, fever(s) or weight loss Eyes Eyes: Denies change in vision or diplopia ENT ENT ED: Denies ear pain, rhinorrhea or sore throat Cardiovascular Cardiovascular: Denies chest pain, orthopnea, palpitations or racing heartbeat Respiratory/Chest Respiratory/Chest: Denies cough, dyspnea or orthopnea Gastrointestinal Gastrointestinal: Reports nausea and vomiting; Denies abdominal pain or diarrhea Genitourinary Genitourinary ED: Denies dysuria, hematuria or urinary frequency Musculoskeletal Musculoskeletal: Reports other Details: Left lower pubic pain ; Denies arthralgias or myalgias Integumentary Denies abscess or rash Neurologic Neurologic: Denies headache(s) or weakness Psychiatric Psychiatric: Denies anxiety, depression, suicidal ideation or suicidal thoughts Endocrine Endocrinology: Denies polydipsia, polyphagia or polyuria Allergic/Immunologic Allergic/Immunologic ED: Denies mouth swelling, tongue swelling or urticaria EXAM Physical Exam Const Vital Signs: 12/15/23 17:49 12/15/23 19:48 12/15/23 21:00 Temperature 97 F L 97.1 F L 98.4 F Temperature Source Temporal Oral Pulse Rate 96 88 92 Respiratory Rate 20 H 16 16 Blood Pressure 141/53 H 127/45 H 128/51 H Blood Pressure Mean 82 72 76 Pulse Ox 91 98 98 Oxygen Delivery Method Room Air Room Air Positive well nourished and well developed General Appearance ED: well developed HEENT Reports normocephalic, head/scalp atraumatic and moist mucous membranes HEENT Narrative: Pupils are 3 mm very sluggish. Eyes PERRL and EOMs intact bilaterally Neck no lymphadenopathy, supple and no JVD Resp normal respiratory effort and clear to auscultation bilaterally Cardio regular rate, regular rhythm and no murmurs GI normal to inspection, nondistended, normoactive bowel sounds and non-tender Palpation: soft Back/Spine no CVA tenderness and normal ROM Extremity normal to inspection General Extremety ED: Negative for edema General Extremity: Negative for edema Neuro CN's II-XII intact bilaterally Neuro Narrative: Patient very slow to respond. She has a high appearance. Very slow deliberate speech. Sensorium / Orientation: alert Motor Exam: strength 5/5 throughout Psych mental status grossly normal Mood & Affect: Negative for depressed or tearful Skin no rashes or lesions noted and no wounds MDM MDM MDM Narrative Medical decision making narrative: Patient's remained very stable here in the department. Basic blood work fairly unremarkable with a creatinine 1.4 BUN of 32 white count of 9.4 hemoglobin 10.9 urinalysis actually looks pretty clean cannot say it is consistent with a UTI. She received some IV fluid. She is hungry we gave her food and she is given given a p.o. challenge. I did speak with her pain management doctor who called then. Again she received this medication at 8 AM. She is presenting at 1800 hrs. The half-life of the medicine is still present however its peak is coming gone. Patient will be discharged back to residential follow-up with her doctors History & Record Review Discussion w/independent historian: Patient and Family Lab Data Attestation: I reviewed the patient's lab results. Labs: Laboratory Results - last 24 hr 12/15/23 12/15/23 18:38 18:40 WBC 9.4 RBC 3.59 L Hgb 10.9 L Hct 34.0 L MCV 94.7 MCH 30.4 MCHC 32.1 RDW Std Deviation 54.8 H RDW Coeff of Saeid 15.6 H Plt Count 252 MPV 9.5 Immature Gran % (Auto) 0.700 Neut % (Auto) 87.4 H Lymph % (Auto) 5.4 L [place] % (Auto) 6.3 Eos % (Auto) 0.1 Baso % (Auto) 0.1 Absolute Neuts (auto) 8.2 H Absolute Lymphs (auto) 0.51 L Nucleated RBC % 0 Sodium 132 L Potassium 5.0 Chloride 102 Carbon Dioxide 24.0 Anion Gap 6 BUN 32 H Creatinine 1.40 H Estim Creat Clear Calc 27.81 Est GFR (MDRD) Af Amer 46 L Est GFR (MDRD) Non-Af 38 L BUN/Creatinine Ratio 22.9 H Glucose 161 H Calcium 9.2 Total Bilirubin 0.30 Direct Bilirubin 0.12 AST 37 ALT 45 Alkaline Phosphatase 168 H Total Protein 6.8 Albumin 3.3 Globulin 3.5 Urine Color Yellow Urine Clarity Sl. Cloudy Urine pH 5.0 Ur Specific [place] 1.025 Urine Protein 30 H Urine Glucose (UA) Normal Urine Ketones Negative Urine Occult Blood Negative Urine Nitrite Negative Urine Bilirubin 1 H Urine Urobilinogen 1 H Ur Leukocyte Esterase 25 H Urine RBC 0 SEEN Urine WBC 0-5 SEEN Ur Squamous Epith Cells 0 SEEN Urine Bacteria 0 SEEN Hyaline Casts 10-25 SEEN Urine Mucus 0 SEEN Discharge Plan Triage Chief Complaint: Nausea/Vomiting ED Provider: Maxx Pandya Dx/Rx/DC Orders Clinical Impression: Medication adverse effect, Vomiting Instructions: ED Vomiting (Adult) Prescriptions: No Action cyanocobalamin (vitamin B-12) 500 MCG tablet 1,000 mcg PO DAILY@0800 losartan 100 MG tablet 100 mg PO DAILY levothyroxine 150 mcg tablet 150 mcg PO DAILY Patient Comments: TAKE 1 TABLET BY MOUTH EVERY DAY cholecalciferol (vitamin D3) [Vitamin D3] 25 mcg (1,000 unit) capsule 1,000 unit PO DAILY citalopram 10 mg tablet 10 mg PO DAILY Patient Comments: TAKE 1 TABLET BY MOUTH ONCE DAILY amlodipine 5 mg Tablet 5 mg PO DAILY 30 Days Qty: 30 0RF aspirin 81 mg Tablet,Chewable 81 mg PO BREAKFAST Qty: 30 0RF ciprofloxacin HCl 250 mg tablet 250 mg PO DAILY buprenorphine HCl 2 mg tablet, sublingual 2 mg sublingual X1 cefdinir 300 mg capsule 300 mg PO BID Patient Comments: Unaware of dosage or amount atorvastatin 40 mg Tablet 40 mg PO QHS metoprolol succinate 50 mg Tablet Extended Release 24 Hr 50 mg PO QHS acetaminophen 500 mg Tablet 1,000 mg PO Q8 Qty: 0 0RF Rx Instructions: Only take it scheduled for about 2 weeks and then take it as needed Primary Care Provider: Beck Napier Chi Referrals: Beck Napier Chi, MD [Primary Care Provider] - Keep Rosita appointment Print Language: Luxembourgish Disposition Disposition: Home, Self Care Discharge Date/Time: 12/15/23 21:44
[2023-12-15] MEDS: 0.9% Normal Saline (1000mL) 1,000 ML 999 ML IV (18:40)
[2023-12-15 18:49] LABS: Absolute Lymphocyte Count 0.51 X10^3/uL (0.83-4.51); Absolute Neutrophil Count 8.2 X10^3/uL (2.0-7.7); Basophil# 0.01 X10^3/uL; Basophil% 0.1 % (0-1); Eosinophil# 0.01 X10^3/uL; Eosinophils% 0.1 % (0-5); Hemoglobin 10.9 g/dL (12.0-15.0); Lymphocyte # 0.51 X10^3/ul (0.83-4.51); Lymphocyte % 5.4 % (19-41); Mean Corp Hgb Conc 32.1 g/dL (32-36); Mean Corpuscular Hgb 30.4 pg (27.0-32.0); Mean Corpuscular Volume 94.7 fL (81-99); Mean Platelet Vol. 9.5 fl (6.2-12.0); Monocyte# 0.59 X10^3/uL; Monocyte% 6.3 % (0-10); NRBC Flagged by Analyzer 0 % (0-5); Neutrophil # 8.17 X10^3/uL (2.7-7.7); Neutrophil % 87.4 % (47-70); POSITIVE DIFFERENTIAL YES; Platelet Count 252 K/mm3 (150-450); RBC Distribution Width CV 15.6 % (11.6-14.6); RBC Distribution Width SD 54.8 fl (35.1-43.9); Red Blood Count 3.59 M/mm3 (4.2-5.4); White Blood Count 9.4 K/mm3 (4.4-11.0)
[2023-12-15 19:05] LABS: Bacteria 0 SEEN /hpf (None Seen); Mucous, Urine 0 SEEN /hpf (<or=2+); Red Blood Cells-Urine 0 SEEN /hpf (0-5); Squamous Epithelial Cells - UA 0 SEEN /hpf (5-10)
[2023-12-15 19:06] LABS: Color, Urine Yellow (Yellow); Glucose, Dipstick Normal (Normal); Ketone-Dipstick Negative (Negative); Leukocyte Esterase-Dipstick 25 /ul (Negative); Nitrite-Dipstick Negative (Negative); Occult Blood-Urine Negative /ul (Negative); Protein-Dipstick 30 mg/dl (Negative); Specific Gravity, Urine 1.025 (1.002-1.030); Urine Clarity Sl. Cloudy (Clear); Urine Urobilinogen 1 mg/dl (Normal)
[2023-12-15 19:07] LABS: AST(SGOT) 37 U/L (15-37); Alanine Aminotransfer ALT/SGPT 45 U/L (13-56); Albumin, Serum 3.3 g/dL (3.2-5.0); Alkaline Phosphatase 168 U/L (45-117); Anion Gap 6 (5-15); BUN 32 mg/dL (7-18); BUN/Creat Ratio 22.9 RATIO (10-20); Bilirubin, Direct 0.12 mg/dL (0.00-0.30); Calcium,Total 9.2 mg/dL (8.5-10.1); Chloride 102 mmol/L (98-107); EST Glomerular Filtration Rate 38 mL/min (>60); Est Glom Filt Rate - Afr Amer 46 mL/min (>60); Estimated Creatinine Clearance 27.81 ml/min; Globulin 3.5 g/dL (2.2-4.2); Glucose 161 mg/dL (74-106); Protein, Total 6.8 g/dL (6.4-8.2); Sodium Level 132 mmol/L (136-145)
[2023-12-15 19:07] LABS: Urine Bilirubin Dipstick 1 mg/dL (Negative)
[2023-12-15 19:12] LABS: White Blood Cells 0-5 SEEN /hpf (0-5)
[2023-12-15 19:13] LABS: Hyaline Cast 10-25 SEEN /lpf (0-5)
[2023-12-15 19:48] VITALS: BP 127/45; PULSE 88; RESP 16; TEMP 36.2; O2SAT 98
[2023-12-15 21:00] VITALS: BP 128/51; PULSE 92; RESP 16; TEMP 36.9; O2SAT 98
== END 2023-12-15 21:44 | disposition home or self-care (01) ==
PROVIDERS: Emergency Provider Emergency Medicine; PCP Family Medicine Geriatric Medicine; Visit Provider Emergency Medicine
DX: R11.2 Nausea with vomiting, unspecified (principal); T40.495A Adverse effect of other synthetic narcotics, initial encounter; Z87.891 Personal history of nicotine dependence; I25.10 Atherosclerotic heart disease of native coronary artery without angina pectoris; I12.9 Hypertensive chronic kidney disease with stage 1 through stage 4 chronic kidney disease, or unspecified chronic kidney disease; N18.9 Chronic kidney disease, unspecified; Z79.899 Other long term (current) drug therapy; E03.9 Hypothyroidism, unspecified; F32.A Depression, unspecified
CPT/HCPCS: 80048; 80076; 81001; 85025; 96360; 96361; 99283; J7030

== ENCOUNTER 2023-12-24 15:00 | Emergency (ER) | payer MEDICARE, SELFPAY ==
[2023-12-24 15:02] VITALS: BP 152/70; PULSE 72; RESP 16; TEMP 36.6; O2SAT 95; BMI 32.0
--- NOTE | 2023-12-24 15:28 | CT_ITS ---
STUDY: CT BRAIN WITHOUT CONTRAST REASON FOR EXAM: Female, 88 years old. Fall RADIATION DOSAGE (If Supplied By Facility): CTDIvol = ( 44.99 ) mGy, DLP = ( 829.85 ) mGycm TECHNIQUE: Transaxial CT imaging of the brain was performed without administration of intravenous contrast material. Individualized dose optimization techniques were used for this CT. COMPARISON: December 20, 2023 FINDINGS: Normal soft tissue structures. Normal calvarium. Stable prominent ventricles. Normal extra-axial spaces for the patient''s age. Bilateral white matter microangiopathic ischemic changes of the cerebral hemispheres. Normal basal ganglia. Probable old lacunar infarct in the right thalamus. Normal brainstem. Normal cerebellum. There is no intracranial hemorrhage. There are no findings of an acute ischemic infarction. Normal visualized paranasal sinuses. CT/Brain/Head without Contrast IMPRESSION: Age-related and chronic changes of the brain. Electronically Signed: Raúl Pires DO at 16:14 EDT ,
--- NOTE | 2023-12-24 15:29 | CT_ITS ---
STUDY: CT ABDOMEN AND PELVIS WITHOUT CONTRAST REASON FOR EXAM: Female, 88 years old. Fall, abd wall hematoma RADIATION DOSAGE (If Supplied By Facility): CTDIvol = ( 19.87 ) mGy, DLP = ( 962.83 ) mGycm TECHNIQUE: Transaxial images were obtained from the dome of the diaphragm to the symphysis pubis without oral contrast, and without intravenous contrast. Sagittal and coronal images were reconstructed. Individualized dose optimization techniques were used for this CT. COMPARISON: None. FINDINGS: The visualized lung bases are unremarkable. The visualized portions of the heart are within normal limits. Cirrhosis of the liver. Focal calcification at the right hepatic dome. Status post cholecystectomy. No significant dilatation of the extrahepatic biliary system. Normal spleen. 1.2 cm possibly cystic nodule along the anterior edge of the body of the pancreas. 1 cm left adrenal nodule. Atrophic kidneys with vascular calcifications or nonobstructive calculi Normal visualized stomach. Normal small intestine. Diverticulosis of the colon. The appendix is visualized and appears normal. Calcified abdominal aorta. Normal inferior vena cava. Normal retroperitoneum. Normal urinary bladder. Normal abdominal wall. Comminuted left pubic fractures. Degenerative vertebral changes and scoliosis. Mild old compression of L3 and L5 CT/Abdomen/Pelvis without Cont IMPRESSION: Comminuted left pubic fractures. Cirrhosis. Level adrenal nodule. Colonic diverticulosis. Atrophic kidneys. Electronically Signed: Raúl Pires DO at 16:37 EDT ,
--- NOTE | 2023-12-24 15:49 | EDS_ITS ---
HPI HPI - Fall History of Present Illness Chief Complaint: Fall Informant: patient and family Occured/Mechanism Occurred: Today Narrative Narrative: Patient presents after a fall at her [facility]. She had been out this morning to an appointment with her primary care physician as well as manager dental. Shortly after returning to her [facility] she fell. She thinks that she got tangled up in her walker. She denies striking her head. She complains of pain to the left lower ribs, right hip, right lower leg. Patient does have a recent pelvic fracture and is scheduled to start physical therapy next week. She was also seen in the ER late last week after a fall with a small hematoma to her posterior scalp. [facility] Medical History Anemia Fall Atherosclerotic heart disease of [place] coronary artery without angina pectoris Aortic stenosis Syncope Chronic kidney disease Hypothyroidism Depression Hypertension Ear infection Home Medications ?Medication ?Instructions ?Recorded ?Last Taken ?Type losartan 100 mg tablet 100 mg PO DAILY blood pressure 01/05/18 Unknown History cholecalciferol (vitamin D3) 25 1,000 unit PO DAILY suppliment 06/17/23 Unknown History mcg (1,000 unit) capsule (Vitamin D3) citalopram 10 mg tablet 10 mg PO DAILY mood 06/17/23 Unknown History levothyroxine 150 mcg tablet 150 mcg PO DAILY thyroid 06/17/23 Unknown History amlodipine 5 mg tablet 5 mg PO DAILY bp 30 days #30 tabs 06/19/23 Unknown Rx metoprolol succinate 50 mg 50 mg PO QHS heart 10/31/23 Unknown History tablet,extended release 24 hr acetaminophen 500 mg tablet 1,000 mg (2 x 500 mg) PO Q8 #0 tabs 11/02/23 Unknown Rx ondansetron 4 mg disintegrating 4 mg PO Q8H PRN PRN Nausea #10 tabs 12/19/23 Unknown Rx tablet atorvastatin 40 mg tablet 20 mg PO QHS hld 12/24/23 Unknown History Allergy/AdvReac Type Severity Reaction Status Date / Time latex Allergy Rash Verified 12/24/23 11:07 Family History Other Cancer Heart disease Surgical History Hx of tonsillectomy Hx of cholecystectomy History of eye surgery Social History housing: house Smoking Status: Former smoker ROS ROS ED Constitutional Constitutional ED: Denies chills or fever(s) Eyes Eyes: Denies discharge from eye(s) ENT ENT ED: Denies discharge from eye(s), rhinorrhea or sore throat Cardiovascular Cardiovascular: Reports other Details: Left lower rib pain ; Denies palpitations Respiratory/Chest Respiratory/Chest: Denies cough or dyspnea Gastrointestinal Gastrointestinal: Reports abdominal pain; Denies diarrhea, nausea or vomiting Musculoskeletal Musculoskeletal: Reports extremity pain; Denies back pain Integumentary Denies Abrasions or rash Neurologic Neurologic: Denies headache(s) or weakness Psychiatric Psychiatric: Denies anxiety or depression Allergic/Immunologic Allergic/Immunologic ED: Denies lip swelling or urticaria EXAM Physical Exam Const Vital Signs: 12/24/23 15:02 12/24/23 15:13 12/24/23 17:00 Temperature 98 F Temperature Source Temporal Pulse Rate 72 83 Respiratory Rate 16 18 Respiratory Effort Normal Respiratory Depth Normal Respiratory Pattern Normal Blood Pressure 152/70 H 161/61 H Blood Pressure Mean 97 94 Pulse Ox 95 95 Oxygen Delivery Method Room Air Room Air Room Air Positive well nourished and well developed General Appearance ED: well developed HEENT HEENT Narrative: Healing hematoma to the left posterior parietal scalp. No laceration. Eyes EOMs intact bilaterally Neck full ROM Neck Narrative: No C-spine tenderness. Chest Wall Chest Narrative: Tenderness outpatient in the left lower ribs. No crepitus. Resp normal respiratory effort and clear to auscultation bilaterally Cardio regular rate and regular rhythm GI GI Narrative: Left lateral abdominal wall tenderness. Ecchymosis is noted. No guarding or rebound. Extremity Extremity Narrative: No clinical tenderness over the pelvis or hips. Early ecchymosis with mild tenderness over the mid tib-fib. Good distal pulses. Neuro oriented x3 and moves all extremities Psych mental status grossly normal MDM MDM MDM Narrative Medical decision making narrative: Patient sent for CT imaging of her brain as well as abdomen and pelvis given her abdominal hematoma. X-rays of the ribs/chest, pelvis and right hip, and right tib-fib are also obtained to evaluate for fracture. Radiography Diagnostic Testing: Clinical Impression(s) from Imaging Studies Brain CT 12/24/23 15:28 IMPRESSION: Age-related and chronic changes of the brain. Electronically Signed: Raúl Pires DO at 16:14 EDT , Abdomen/Pelvis CT 12/24/23 15:29 IMPRESSION: Comminuted left pubic fractures. Cirrhosis. Level adrenal nodule. Colonic diverticulosis. Atrophic kidneys. Electronically Signed: Raúl Pires DO at 16:37 EDT , Hip/Pelvis X-Ray 12/24/23 16:00 IMPRESSION: Comminuted fractures are noted of the left pubic rami. Electronically Signed: Raúl Pires DO at 16:47 EDT , Ribs w/Chest X-Ray 12/24/23 16:00 IMPRESSION: Left 10th rib fracture. Electronically Signed: Raúl Pires DO at 16:44 EDT , Tibia/Fibula X-Ray 12/24/23 16:00 IMPRESSION: Soft tissue swelling around the ankle. Electronically Signed: Raúl Pires DO at 16:49 EDT , Treatment and Re-Evaluation Narrative: CT scan of the head reveals chronic changes with no new findings. CT scan of the abdomen pelvis reveals comminuted left pubic fractures. No evidence of hemorrhage. Rib series with chest x-ray per my interpretation reveals at least 1 single minimally displaced rib fracture. Radiology interpretation reviewed and agrees the patient has a fracture of the 10th left rib. Pelvis and jeannette ateral hip x-rays are also obtained. Per my interpretation left pubic rami fractures are present but stable when compared to prior. No new findings. Radiology interpretation reviewed and agrees. Right tib-fib x-ray per my interpretation reveals no acute bony injury. Radiology interpretation reviewed and agrees. Test results discussed with patient and daughter at bedside. She will be given a dose of Tylenol here and has been doing well on Tylenol for her pelvic fractures. We will arrange EMS transport to get her back to [place]. Discharge Plan Triage Chief Complaint: Fall ED Provider: Pamela Bocanegra Dx/Rx/DC Orders Clinical Impression: Fall, Closed fracture of left inferior pubic ramus, Closed fracture of left superior pubic ramus, Left rib fracture Instructions: ED Fall with Uncertain Cause, ED Rib Fracture Prescriptions: No Action losartan 100 MG tablet 100 mg PO DAILY levothyroxine 150 mcg tablet 150 mcg PO DAILY Patient Comments: TAKE 1 TABLET BY MOUTH EVERY DAY cholecalciferol (vitamin D3) [Vitamin D3] 25 mcg (1,000 unit) capsule 1,000 unit PO DAILY citalopram 10 mg tablet 10 mg PO DAILY Patient Comments: TAKE 1 TABLET BY MOUTH ONCE DAILY amlodipine 5 mg Tablet 5 mg PO DAILY 30 Days Qty: 30 0RF atorvastatin 40 mg tablet 20 mg PO QHS metoprolol succinate 50 mg Tablet Extended Release 24 Hr 50 mg PO QHS acetaminophen 500 mg Tablet 1,000 mg PO Q8 Qty: 0 0RF Rx Instructions: Only take it scheduled for about 2 weeks and then take it as needed ondansetron 4 mg tablet,disintegrating 4 mg PO Q8H PRN PRN (Reason: Nausea) Qty: 10 0RF Primary Care Provider: Beck Napier Chi Referrals: Beck Napier Chi, MD [Primary Care Provider] - 1 Week Print Language: Bengali Disposition Disposition: Home, Self Care
--- NOTE | 2023-12-24 16:00 | RAD_ITS ---
INDICATION: fall EXAMINATION/TECHNIQUE: X-RAY - XR Hips Bilateral with Pelvis when performed; 2 Views COMPARISON: FINDINGS: PELVIC BONES: Left pubic rami comminuted fractures are noted. Sacroiliac joints are unremarkable. No widening of the pubic symphysis. Degenerative lower lumbar changes and mild scoliosis. HIPS: The articular structures are unremarkable. No displaced fracture seen in this frontal view. SOFT TISSUES: No soft tissue swelling or gas. RAD/Hips B/L min 2 views w/ Pelvis IMPRESSION: Comminuted fractures are noted of the left pubic rami. Electronically Signed: Raúl Pires DO at 16:47 EDT Reading Location ID and State: [facility] / [place] Tel [phone], Service support ,
--- NOTE | 2023-12-24 16:00 | RAD_ITS ---
INDICATION: fall EXAMINATION/TECHNIQUE: X-RAY - XR Ribs Unilateral W/ PA Chest Min 3 Views COMPARISON: FINDINGS: SOFT TISSUES: No soft tissue swelling or gas. BONES: There is a fracture of the left 10th rib. No sclerotic or destructive changes observed. VISUALIZED LUNGS: Left basilar atelectasis. No pneumothorax. RAD/Ribs Uni Min 3V w/PA Chest IMPRESSION: Left 10th rib fracture. Electronically Signed: Raúl Pires DO at 16:44 EDT ,
--- NOTE | 2023-12-24 16:00 | RAD_ITS ---
INDICATION: fall EXAMINATION/TECHNIQUE: X-RAY - RIGHT XR Tibia/Fibula 2 Views 2 VIEWS COMPARISON: FINDINGS: SOFT TISSUES: There is soft tissue swelling around the ankle. No radiopaque foreign body. BONES/JOINTS: No acute fracture or subluxation.. Normal alignment. Preservation of the joint space.. No sclerotic or destructive changes observed. RAD/Tibia & Fibula 2 Views IMPRESSION: Soft tissue swelling around the ankle. Electronically Signed: Raúl Pires DO at 16:49 EDT ,
[2023-12-24 17:00] VITALS: BP 161/61; PULSE 83; RESP 18; O2SAT 95
[2023-12-24 18:40] VITALS: BP 151/72; PULSE 70; RESP 16; TEMP 37; O2SAT 99
--- NOTE | 2023-12-24 18:46 | ED.RN ---
REPORT CALLED TO SAVANNAH NURSE XIAO
[2023-12-24] MEDS: Acetaminophen 500 MG Tablet 1000 MG PO (18:48)
[2023-12-24 19:00] VITALS: BP 143/84; PULSE 79; RESP 16; O2SAT 99
== END 2023-12-24 19:28 | disposition home or self-care (01) ==
PROVIDERS: Emergency Provider Emergency Medicine; PCP Family Medicine Geriatric Medicine; Visit Provider Emergency Medicine
DX: S22.32XA Fracture of one rib, left side, initial encounter for closed fracture (principal); S32.592A Other specified fracture of left pubis, initial encounter for closed fracture; S32.512A Fracture of superior rim of left pubis, initial encounter for closed fracture; Z87.891 Personal history of nicotine dependence; W18.30XA Fall on same level, unspecified, initial encounter; Y92.89 Other specified places as the place of occurrence of the external cause; I25.10 Atherosclerotic heart disease of native coronary artery without angina pectoris; I12.9 Hypertensive chronic kidney disease with stage 1 through stage 4 chronic kidney disease, or unspecified chronic kidney disease; N18.9 Chronic kidney disease, unspecified; Z79.899 Other long term (current) drug therapy; E03.9 Hypothyroidism, unspecified; F32.A Depression, unspecified; Z90.49 Acquired absence of other specified parts of digestive tract
CPT/HCPCS: 70450; 71101; 73521; 73590; 74176; 99282; A4216

== ENCOUNTER → 2024-01-28 | Outpatient (CLI) | payer MEDICARE, SELFPAY ==
--- NOTE | 2024-01-28 13:15 | MRI_ITS ---
ACR Level 3 findings have been noted. An addendum which confirms receipt of the report will follow. STUDY: MRI BRAIN WITHOUT CONTRAST REASON FOR EXAM: Female, 88 years old. ENCEPHALOPATHY TECHNIQUE: Standardized multiplanar fat and water weighted pulse sequences were obtained through the brain without contrast COMPARISON: CT head 12/24/2023 HEMISPHERES, CEREBELLUM AND BRAINSTEM: Normal midline developmental anatomy. No Chiari malformation. Unremarkable sella. Cerebellar pontine angles are clear. No evidence of intracranial mass or mass effect. Severe periventricular T2 hyperintense chronic small vessel white matter ischemic change. T1 hyperintense linear serpentine signal with diffusion restriction in the in the posterior medial right occipital lobe. 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 2 mm restricted diffusion left cerebellar hemisphere axial diffusion image 30 and ADC image 6. PITUITARY: Infundibulum and pituitary have normal configuration. Midline structures appear normal. CSF SPACES: Moderate global cerebral volume loss with chronic prominent dilatation of the lateral ventricles similar to July 16, 2022. Basal cisterns are patent. VESSELS: 1. There are normal flow voids noted in the great vessels at the skull base ORBITS AND PARANASAL SINUSES: 1. Both globes, extraocular muscles, optic nerves and retrobulbar fat appear unremarkable. 2. Paranasal sinuses are clear. BONY ELEMENTS: Bony elements of the cranial vault, facial skeleton and skull base have normal appearance. SCALP AND SOFT TISSUES: Normal appearance of the soft tissues of the scalp and the visualized face MRI/Brain without Contrast IMPRESSION: 1. No intracranial mass or hemorrhage. 2. Findings concerning for acute or early subacute ischemic stroke in the medial right occipital lobe with T1 hyperintense laminar necrosis. Also punctate acute or early subacute ischemic stroke within the left mid cerebellum. 3. Severe senescent changes. Electronically Signed: Santiago Wilson MD at 8:08 EDT ,
[2024-01-28 17:27] LABS: Absolute Lymphocyte Count 2.21 X10^3/uL (0.83-4.51); Basophil# 0.06 X10^3/uL; Basophil% 0.7 % (0-1); Eosinophil# 0.08 X10^3/uL; Eosinophils% 0.9 % (0-5); Hematocrit 35.7 % (37-47); Hemoglobin 11.3 g/dL (12.0-15.0); Lymphocyte # 2.21 X10^3/ul (0.83-4.51); Lymphocyte % 24.3 % (19-41); Mean Corp Hgb Conc 31.7 g/dL (32-36); Mean Corpuscular Hgb 30.6 pg (27.0-32.0); Mean Corpuscular Volume 96.7 fL (81-99); Monocyte# 0.68 X10^3/uL; Monocyte% 7.5 % (0-10); NRBC Flagged by Analyzer 0 % (0-5); Neutrophil # 5.97 X10^3/uL (2.7-7.7); Neutrophil % 65.5 % (47-70); Platelet Count 347 K/mm3 (150-450); RBC Distribution Width CV 15.6 % (11.6-14.6); RBC Distribution Width SD 55.7 fl (35.1-43.9); Red Blood Count 3.69 M/mm3 (4.2-5.4); White Blood Count 9.1 K/mm3 (4.4-11.0)
[2024-01-28 17:55] LABS: ALB/GLOB Ratio 0.9 RATIO (0.9-2.4); AST(SGOT) 17 U/L (15-37); Alanine Aminotransfer ALT/SGPT 17 U/L (13-56); Albumin, Serum 3.3 g/dL (3.2-5.0); Alkaline Phosphatase 154 U/L (45-117); Anion Gap 5 (5-15); BUN 22 mg/dL (7-18); BUN/Creat Ratio 17.9 RATIO (10-20); Calcium,Total 9.3 mg/dL (8.5-10.1); Chloride 107 mmol/L (98-107); Creatinine, Serum 1.23 mg/dL (0.55-1.02); EST Glomerular Filtration Rate 44 mL/min (>60); Est Glom Filt Rate - Afr Amer 53 mL/min (>60); Globulin 3.7 g/dL (2.2-4.2); Glucose 96 mg/dL (74-106); Potassium 4.3 mmol/L (3.5-5.1); Sodium Level 138 mmol/L (136-145)
== END | disposition home or self-care (01) ==
LOC: MRI 13:05
PROVIDERS: PCP Family Medicine Geriatric Medicine; Referring Provider Family Medicine Geriatric Medicine; Visit Provider Family Medicine Geriatric Medicine
DX: G93.40 Encephalopathy, unspecified (principal); I10 Essential (primary) hypertension
CPT/HCPCS: 36415; 70551; 80053; 85025

== ENCOUNTER → 2024-02-18 | Outpatient (CLI) | payer MEDICARE, SELFPAY ==
--- NOTE | 2024-02-18 13:56 | CT_ITS ---
STUDY: CTA HEAD AND NECK WITH CONTRAST REASON FOR EXAM: Female, 88 years old. Cerebral infarction, unspecified RADIATION DOSAGE (If Supplied By Facility): CTDIvol = ( 29.60 ) mGy, DLP = ( 1497.02 ) mGycm TECHNIQUE: CT angiography was performed with a multi-detector CT scanner. Data acquisition was obtained from the skull base through the vertex following intravenous administration of IV 100mL Isovue-370. MIP images were reconstructed from the axial data set. Post-processing of the angiographic images was performed, with multiplanar reformation and 3D reconstruction. Individualized dose optimization techniques were used for this CT. COMPARISON: No relevant priors. FINDINGS: Normal bilateral petrous carotid arteries. There is calcified plaque formation of the right cavernous carotid artery, with a mild stenosis (less than 50%). There is calcified plaque formation of the left cavernous carotid artery, with a mild stenosis (less than 50%). Normal right A1 segments of the anterior cerebral artery. Normal left A1 segments of the anterior cerebral artery. Normal intact anterior communicating artery (ACOM). Normal bilateral A2 segments of the anterior cerebral arteries. Normal right M1 and M2 segments of the middle cerebral arteries, with a normal M1 bifurcation. Normal left M1 and M2 segments of the middle cerebral arteries, with a normal M1 bifurcation. Normal right posterior communicating artery (PCOM). Normal left posterior communicating artery (PCOM). Normal bilateral vertebral arteries. Normal basilar artery with a normal basilar bifurcation. The visualized bilateral superior cerebellar (SCA) arteries are normal. Normal bilateral P1, P2 and visualized P3 segments of the posterior cerebral arteries. There is no demonstrated aneurysm of the [place]. Moderate degree of the cerebral atrophy. Old lacunar infarct in the insular cortex of the left temporal lobe. Decreased attenuation in the periventricular white matter suggestive of chronic small vessel disease. AORTIC ARCH: There is atherosclerotic calcific plaque formation of the aortic arch and great vessels arising from the aortic arch, without a hemodynamically significant stenosis. There is a normal origin of the brachiocephalic, left common carotid, and left subclavian arteries. RIGHT CAROTID ARTERIES: There is atherosclerotic plaque formation of the common carotid artery, but without a hemodynamically significant stenosis. Normal right common carotid bulb. There is moderate atherosclerotic plaque formation of the origin of the right internal carotid artery with an estimated stenosis of 50-69% stenosis. Normal visualized cervical portion of the right internal carotid artery. Normal origin of the right external carotid artery (ECA). LEFT CAROTID ARTERIES: Normal left common carotid artery (CCA). Normal left common carotid bulb. There is moderate atherosclerotic plaque formation of the origin of the left internal carotid artery with an estimated stenosis of 50-69% stenosis. Normal visualized cervical portion of the left internal carotid artery. Normal origin of the left external carotid artery (ECA). VERTEBRAL ARTERIES: Nonstenotic ossific plaques of the left vertebral artery. 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 Electronically Signed: Edmundo Diallo MD at 15:11 EDT ,
== END | disposition home or self-care (01) ==
LOC: CT 13:55
PROVIDERS: PCP Family Medicine Geriatric Medicine; Referring Provider Family Medicine Geriatric Medicine; Visit Provider Family Medicine Geriatric Medicine
DX: I63.9 Cerebral infarction, unspecified (principal)
CPT/HCPCS: 70496; 70498; Q9967

== ENCOUNTER → 2024-02-20 | Outpatient (CLI) | payer MEDICARE, SELFPAY ==
--- NOTE | 2024-02-20 13:45 | ECHOD_ITS ---
Reason For Study: SOB Procedure This was a 2D Doppler, Color Flow transthoracic echocardiogram. Exam performed in department. Left Ventricle Normal LV size. The estimated ejection fraction is 70 %. Unable to assess diastolic dysfunction. No regional wall motion abnormalities noted. Right Ventricle Normal RV size. Normal systolic function. Atria The left atrium is mildly enlarged. Normal right atrium. No doppler evidence for ASD. Mitral Valve There is severe mitral annular calcification. There is no mitral valve stenosis. Trivial mitral valve insufficiency. Tricuspid Valve There is no tricuspid stenosis. Mild (1+) tricuspid valve insufficiency. Pulmonary artery systolic pressure is 50 mmHg. Aortic Valve Severe diffuse aortic valve thickening. Moderate to severe aortic stenosis. No aortic valve insufficiency. Pulmonic Valve There is no pulmonic valvular stenosis. No pulmonic valve insufficiency. Great Vessels Normal aortic root. Pericardium/Pleural No pericardial effusion. MMode/2D Measurements & Calculations LVIDd: 3.7 cm IVSd: 1.0 cm LVOT diam: 2.0 cm LVIDs: 2.5 cm LVPWd: 0.99 cm LVOT area: 3.1 cm2 RVDd: 3.7 cm FS: 33.0 % Ao root diam: 3.1 cm LAV(MOD-bp): 54.2 ml LVAd ap4: 22.6 cm2 LAV(MOD-bp) Indexed: 31.4 ml/m2 LVLd ap4: 6.8 cm LAV(MOD-sp2): 50.9 ml EDV(MOD-sp4): 59.5 ml LAV(MOD-sp4): 56.7 ml EDV(sp4-el): 63.6 ml LVAs ap4: 11.6 cm2 LVLs ap4: 5.6 cm ESV(MOD-sp4): 20.2 ml ESV(sp4-el): 20.4 ml EF(MOD-sp4): 66.0 % EF(sp4-el): 67.9 % SV(MOD-sp4): 39.2 ml SV(sp4-el): 43.2 ml LA A4 area: 20.6 cm2 LA dimension(2D): 3.3 cm RA A4 area: 17.4 cm2 TAPSE: 2.9 cm Time Measurements MV dec time: 0.40 sec Doppler Measurements & Calculations MV E max juan: 102.8 cm/sec Lat Peak E' Juna: 6.0 cm/sec Med Peak E' Juan: 5.9 cm/sec MV A max juan: 174.9 cm/sec E/E' lat: 17.0 E/E' med: 17.4 MV E/A: 0.59 MV V2 max: 185.1 cm/sec MV P1/2t max juan: 131.3 cm/sec Ao V2 max: 398.3 cm/sec MV max P.7 mmHg MV P1/2t: 122.4 msec Ao max P.5 mmHg MV V2 mean: 107.4 cm/sec Ao V2 mean: 293.1 cm/sec MV mean P.1 mmHg MV dec slope: 314.0 cm/sec2 Ao mean P.1 mmHg MV V2 VTI: 45.6 cm MVA(P1/2t): 1.8 cm2 Ao V2 VTI: 98.9 cm AV (velocity ratio): 0.34 MVA(VTI): 2.3 cm2 SHIVANI(I,D): 1.1 cm2 SHIVANI(V,D): 1.0 cm2 LV V1 max: 134.2 cm/sec SV(LVOT): 104.4 ml PA V2 max: 96.4 cm/sec LV V1 max P.2 mmHg LV V1 mean P.2 mmHg LV V1 mean: 96.0 cm/sec LV V1 VTI: 33.6 cm TR max juan: 340.1 cm/sec TR max P.3 mmHg ECHO/Echo Complete Interpretation Summary The estimated ejection fraction is 70 %. Unable to assess diastolic dysfunction. The left atrium is mildly enlarged. Trivial mitral valve insufficiency. Moderate to severe aortic stenosis. Ordering Physician: Beck Napier Chi Referring Physician: Beck Napier Chi Performed By: Hannah Caruso, ALISIA
== END | disposition home or self-care (01) ==
LOC: CVS 13:42
PROVIDERS: PCP Family Medicine Geriatric Medicine; Referring Provider Family Medicine Geriatric Medicine; Visit Provider Family Medicine Geriatric Medicine
DX: R06.02 Shortness of breath (principal)
CPT/HCPCS: 93306

== ENCOUNTER → 2024-02-27 | Outpatient (CLI) | payer MEDICARE, SELFPAY ==
--- NOTE | 2024-02-27 16:30 | CT_ITS ---
STUDY: CT ABDOMEN AND PELVIS WITH CONTRAST REASON FOR EXAM: Female, 88 years old. PAIN RADIATION DOSAGE (If Supplied By Facility): CTDIvol = ( 10.19 ) mGy, DLP = ( 849.49 ) mGycm TECHNIQUE: Transaxial images were obtained from the dome of the diaphragm to the symphysis pubis without oral contrast. Oral and amp; IV Gastrografin and amp; 100mL Isovue-370 was administered. Sagittal and coronal images were reconstructed. Individualized dose optimization techniques were used for this CT. COMPARISON: December 24, 2023 FINDINGS: Minor atelectasis within the dependent portion of the lungs. Heart is mildly enlarged. There is multifocal coronary artery calcification The liver is normal in size and homogeneous attenuation.. There is mild bile duct dilatation likely of no clinical significance Gallbladder has been removed surgically.. Normal spleen. Normal pancreas. Right adrenal is normal. There is a small hypoattenuated left adrenal nodule likely benign There is multifocal bilateral renal cortical scarring likely due to old inflammatory disease. No evidence for renal obstruction or mass. There is submucosal fat deposition within the gastric wall of uncertain clinical significance. Normal small intestine. There is diffuse fecal retention within the colon and mild focal fatty infiltration of the ileocecal valve. There are diverticular changes most pronounced within the distal descending and proximal sigmoid colon without evidence for acute diverticulitis at this time.. No evidence for acute appendicitis. Atherosclerotic change of the aorta without evidence for aneurysm. Normal inferior vena cava. Normal retroperitoneum. Normal urinary bladder. Normal abdominal wall. Lumbar spine demonstrates degenerative change.. There is severe old compression fracture of L1 and mild chronic wedging of superior endplates of L3 and L5 . There are also old fractures of the left inferior and superior pubis CT/Abdomen/Pelvis WITH Contrast IMPRESSION: Minor intrahepatic biliary ductal dilatation status post cholecystectomy likely of no clinical significance. 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 Electronically Signed: Harvey Rcihter MD at 20:27 EDT ,
== END | disposition home or self-care (01) ==
LOC: CT 16:27
PROVIDERS: PCP Family Medicine Geriatric Medicine; Referring Provider Family Medicine Geriatric Medicine; Visit Provider Family Medicine Geriatric Medicine
DX: R10.9 Unspecified abdominal pain (principal)
CPT/HCPCS: 74177; Q9967; A4216

== ENCOUNTER → 2024-03-06 | Outpatient (CLI) | payer MEDICARE, SELFPAY ==
--- NOTE | 2024-03-06 09:29 | CDU_ITS ---
Reason For Study: Bilateral Carotid Stenosis Rt. Velocities/BP Lt. Velocities/BP Prox CCA 72.1/8.4 cm/sec. Prox CCA 88.8/13.9 cm/sec. Mid CCA 94.2/15.7 cm/sec. Mid CCA 81.5/15.7 cm/sec. Dist CCA 128.9/10.2 cm/sec. Dist CCA 90.6/13.9 cm/sec. Prox ICA 76.5/16.0 cm/sec. Prox ICA 90.6/12.1 cm/sec. Mid ICA 78.7/13.8 cm/sec. Mid ICA 94.9/14.5 cm/sec. Dist ICA 77.6/13.8 cm/sec. Dist ICA 76.7/16.7 cm/sec. Rt. ICA/CCA = 0.8. Lt. ICA/CCA = 1.2. Prox ECA 75.4/0.0 cm/sec. Prox ECA 123.3/9.7 cm/sec. Rt. Vert. 51.2/6.2 cm/sec. Lt. Vert. 41.5/5.8 cm/sec. Right Extracranial There is heterogeneous, irregular atherosclerotic plaque noted in the right common carotid artery. There is heterogeneous, irregular atherosclerotic plaque noted in the right internal carotid artery. There is heterogeneous, irregular atherosclerotic plaque noted in the right external carotid artery. Antegrade flow is noted in the right vertebral artery. Left Extracranial There is heterogeneous, irregular atherosclerotic plaque noted in the left common carotid artery. There is heterogeneous, irregular atherosclerotic plaque noted in the left internal carotid artery. There is heterogeneous, irregular atherosclerotic plaque noted in the left external carotid artery. Antegrade flow is noted in the left vertebral artery. Procedure Carotid Duplex 72444. This is a Carotid Duplex examination using B-mode, color flow and specral Doppler. The study was technically difficult. Exam performed in department. VL/Carotid Duplex Ultrasound Interpretation Summary Mild (<50%) stenosis right extracranial internal carotid. Mild (<50%) stenosis left extracranial internal carotid. Patent and antegrade vertebrals bilaterally. Ordering Physician: Beck Napier Chi Referring Physician: Beck Napier Chi Performed By: Dwayne Hernandez RVT
== END | disposition home or self-care (01) ==
LOC: CVS 09:27
PROVIDERS: PCP Family Medicine Geriatric Medicine; Referring Provider Family Medicine Geriatric Medicine; Visit Provider Family Medicine Geriatric Medicine
DX: I65.23 Occlusion and stenosis of bilateral carotid arteries (principal)
CPT/HCPCS: 93880